=== PATIENT | female | born 1955 | race Caucasian/White ===

== ENCOUNTER → 2016-04-23 | Outpatient (REF) | payer OTHER ==
[2016-04-23 12:26] LABS: ALBUMIN/GLOBULIN RATIO 1.05 (1.00-1.93); ALKALINE PHOSPHATASE 74 U/L (45-117); ALT/SGPT 48 U/L (12-78); ANION GAP 7 MEQ/L (8-16); AST/SGOT 32 U/L (15-37); BILIRUBIN,TOTAL 0.5 MG/DL (0.2-1.0); BLOOD UREA NITROGEN 20 MG/DL (7-18); CALCIUM LEVEL 8.8 MG/DL (8.8-10.2); CARBON DIOXIDE LEVEL 31 MEQ/L (21-32); CHLORIDE LEVEL 107 MEQ/L (98-107); CHOLESTEROL LEVEL 159 MG/DL (<200); CREATININE FOR GFR 0.96 MG/DL (0.55-1.02); GLOMERULAR FILTRATION RATE > 60.0 (>45); GLUCOSE, FASTING 123 MG/DL (80-110); POTASSIUM SERUM 4.1 MEQ/L (3.5-5.1); SODIUM LEVEL 145 MEQ/L (136-145); TOTAL PROTEIN 7.8 GM/DL (6.4-8.2); TRIGLYCERIDES LEVEL 103 MG/DL (<150); URIC ACID 6.1 MG/DL (2.6-6.0)
== END ==
LOC: M SFHCCLAY 07:02
PROVIDERS: ATTEND Family Medicine
DX: I10 Essential (primary) hypertension (principal); E11.9 Type 2 diabetes mellitus without complications; E78.2 Mixed hyperlipidemia; M10.9 Gout, unspecified

== ENCOUNTER → 2016-06-14 | Outpatient (REF) | payer OTHER | LOC: M SFHCCLAY 12:03 | PROVIDERS: ATTEND Family Medicine | DX: N30.00 Acute cystitis without hematuria (principal) ==

== ENCOUNTER → 2016-07-23 | Outpatient (REF) | payer OTHER ==
[2016-07-23 19:20] LABS: BACTERIA, URINE NONE SEEN; HYALINE CAST, URINE NONE SEEN /lpf (0-1); MICROSCOPIC EXAM PERFORMED; RBC, URINE 0-1 /hpf (0-3); SQUAMOUS EPITHELIAL CELL URINE SMALL AMOUNT /hpf (SMALL AMT)
== END ==
LOC: M SMT 16:47
PROVIDERS: ATTEND Specialist
DX: R31.9 Hematuria, unspecified (principal)

== ENCOUNTER → 2016-10-14 | Outpatient (REF) | payer OTHER ==
[2016-10-14 14:07] LABS: ALBUMIN 3.9 GM/DL (3.2-5.2); ALBUMIN/GLOBULIN RATIO 1.11 (1.00-1.93); BILIRUBIN,TOTAL 0.3 MG/DL (0.2-1.0); CALCIUM LEVEL 9.2 MG/DL (8.8-10.2); CREATININE FOR GFR 1.15 MG/DL (0.55-1.02); GLOMERULAR FILTRATION RATE 50.9 (>45); POTASSIUM SERUM 4.2 MEQ/L (3.5-5.1); TOTAL PROTEIN 7.4 GM/DL (6.4-8.2); URIC ACID 8.4 MG/DL (2.6-6.0)
== END ==
LOC: M SFHCCLAY 07:11
PROVIDERS: ATTEND Family Medicine
DX: I10 Essential (primary) hypertension (principal); E11.9 Type 2 diabetes mellitus without complications; E78.2 Mixed hyperlipidemia; M10.9 Gout, unspecified

== ENCOUNTER → 2017-07-20 | Outpatient (CLI) | payer OTHER | LOC: M CLY 14:13 | DX: R06.00 Dyspnea, unspecified (principal) | CPT/HCPCS: 71046 ==

== ENCOUNTER → 2017-07-26 | Outpatient (CLI) | payer OTHER | LOC: M RAD 12:26 | DX: N60.32 Fibrosclerosis of left breast (principal) | CPT/HCPCS: 77066 ==

== ENCOUNTER → 2017-11-01 | Outpatient (CLI) | payer OTHER ==
[~2017-11-01] MED LIST: E-Z-GAS II EFFERVESCENT PACKET (SODIUM BICARB./CITRIC ACID/SIMETHICONE) As Ordered; E-Z-HD 98% w/w 340GM SUSP BTL As Ordered; E-Z-PAQUE 96% w/w SUSP 176GM BTL As Ordered
== END ==
LOC: M RAD 08:49
DX: K21.9 Gastro-esophageal reflux disease without esophagitis (principal)
CPT/HCPCS: 74220

== ENCOUNTER → 2018-02-24 | Outpatient (REF) | payer OTHER ==
[2018-02-24 16:53] LABS: BASO % 0.5 % (0.0-1.0); EOS # 0.2 10^3/uL (0.0-0.50); EOS % 2.1 % (0.0-3.0); HEMATOCRIT 45.7 % (36.0-47.0); HEMOGLOBIN 15.6 g/dl (12.0-15.5); IMMATURE GRANULOCYTE % 0.2 % (0-3.0); LYMPH # 1.9 10^3/uL (1.5-4.5); LYMPH % 22.6 % (24.0-44.0); MEAN CORPUSCULAR HEMOGLOBIN 29.8 pg (27.0-33.0); MEAN CORPUSCULAR HGB CONC 34.1 g/dl (32.0-36.5); MEAN CORPUSCULAR VOLUME 87.2 fl (80.0-96.0); MONO # 0.9 10^3/uL (0.0-0.8); MONO % 10.9 % (0.0-5.0); NEUTROPHILS # 5.2 10^3/uL (1.8-7.7); NEUTROPHILS % 63.7 % (36.0-66.0); PLATELET COUNT, AUTOMATED 251 10^3/uL (150-450); RED BLOOD COUNT 5.24 10^6/uL (4.00-5.40); RED CELL DISTRIBUTION WIDTH 11.9 % (11.5-14.5); WHITE BLOOD COUNT 8.2 10^3/uL (4.0-10.0)
[2018-02-24 17:26] LABS: ALBUMIN 3.9 GM/DL (3.2-5.2); ALBUMIN/GLOBULIN RATIO 1.03 (1.00-1.93); ALKALINE PHOSPHATASE 52 U/L (45-117); ALT/SGPT 44 U/L (12-78); ANION GAP 9 MEQ/L (8-16); AST/SGOT 27 U/L (7-37); BILIRUBIN,TOTAL 0.4 MG/DL (0.2-1.0); BLOOD UREA NITROGEN 20 MG/DL (7-18); CALCIUM LEVEL 8.6 MG/DL (8.8-10.2); CARBON DIOXIDE LEVEL 30 MEQ/L (21-32); CHLORIDE LEVEL 105 MEQ/L (98-107); CHOLESTEROL LEVEL 160 MG/DL (<200); CHOLESTEROL RISK RATIO 3.555 (<5); CREATININE FOR GFR 1.01 MG/DL (0.55-1.30); GLOMERULAR FILTRATION RATE 58.9 (>45); GLUCOSE, FASTING 96 MG/DL (70-100); HDL CHOLESTEROL 45 MG/DL (>40); LDL CHOLESTEROL 89 MG/DL (<100); NON-HDL-C 115 MG/DL; POTASSIUM SERUM 3.8 MEQ/L (3.5-5.1); SODIUM LEVEL 144 MEQ/L (136-145); TOTAL PROTEIN 7.7 GM/DL (6.4-8.2); TRIGLYCERIDES LEVEL 131 MG/DL (<150)
[2018-02-24 17:36] LABS: ESTIMATED AVERAGE GLUCOSE 128 MG/DL (60-110); HEMOGLOBIN A1c 6.1 %
== END ==
LOC: M SFHCCLAY 11:01
DX: I10 Essential (primary) hypertension (principal); E78.2 Mixed hyperlipidemia; E11.9 Type 2 diabetes mellitus without complications
CPT/HCPCS: 84443

== ENCOUNTER → 2018-08-29 | Outpatient (REF) | payer OTHER ==
[~2018-08-29] MED LIST changes: -E-Z-GAS II EFFERVESCENT PACKET (SODIUM BICARB./CITRIC ACID/SIMETHICONE) As Ordered; -E-Z-HD 98% w/w 340GM SUSP BTL As Ordered; -E-Z-PAQUE 96% w/w SUSP 176GM BTL As Ordered; +INDA125TA PO; +OMEP40CA2 PO
[2018-08-29 17:05] LABS: ALBUMIN 4.4 GM/DL (3.2-5.2); ALT/SGPT 54 U/L (12-78); BILIRUBIN,TOTAL 0.5 MG/DL (0.2-1.0); BLOOD UREA NITROGEN 17 MG/DL (7-18); C REACTIVE PROTEIN QUANTITATIV 0.72 MG/DL (0.00-0.30); CALCIUM LEVEL 9.5 MG/DL (8.8-10.2); CARBON DIOXIDE LEVEL 29 MEQ/L (21-32); CHLORIDE LEVEL 105 MEQ/L (98-107); CREATININE FOR GFR 1.14 MG/DL (0.55-1.30); GLOMERULAR FILTRATION RATE 51.1 (>45); GLUCOSE, FASTING 106 MG/DL (70-100); MAGNESIUM LEVEL 2.5 MG/DL (1.8-2.4); POTASSIUM SERUM 3.8 MEQ/L (3.5-5.1); RHEUMATOID FACTOR QUANT < 10.0 IU/ML (<15.0); SODIUM LEVEL 141 MEQ/L (136-145); URIC ACID 7.1 MG/DL (2.6-6.0)
[2018-08-29 17:22] LABS: BASO % 0.3 % (0.0-1.0); EOS # 0.1 10^3/uL (0.0-0.50); EOS % 0.9 % (0.0-3.0); HEMATOCRIT 47.9 % (36.0-47.0); LYMPH # 1.8 10^3/uL (1.5-4.5); LYMPH % 19.8 % (24.0-44.0); MEAN CORPUSCULAR HEMOGLOBIN 29.7 pg (27.0-33.0); MEAN CORPUSCULAR HGB CONC 33.4 g/dl (32.0-36.5); MONO # 0.7 10^3/uL (0.0-0.8); MONO % 7.9 % (0.0-5.0); NEUTROPHILS # 6.3 10^3/uL (1.8-7.7); NEUTROPHILS % 70.6 % (36.0-66.0); PLATELET COUNT, AUTOMATED 254 10^3/uL (150-450); RED BLOOD COUNT 5.38 10^6/uL (4.00-5.40); WHITE BLOOD COUNT 8.9 10^3/uL (4.0-10.0)
[2018-08-29 17:32] LABS: HEMOGLOBIN A1c 6.3 %
[2018-08-29 18:07] LABS: ERYTHROCYTE SEDIMENTATION RATE 5 mm/hr (0-30)
[2018-09-01 00:08] LABS: ANA (HEP2) Positive (.); CYCLIC CITRULLINATED PEPTIDE 22 units (0-19)
== END ==
LOC: M SFHCCLAY 11:25
PROVIDERS: ATTEND Family Medicine
DX: I10 Essential (primary) hypertension (principal); M25.50 Pain in unspecified joint; E11.9 Type 2 diabetes mellitus without complications; M10.9 Gout, unspecified

== ENCOUNTER → 2019-01-24 | Outpatient (CLI) | payer OTHER ==
[~2019-01-24] MED LIST changes: -OMEP40CA2 PO; +OMEP40CA97 PO
--- NOTE | 2019-01-25 09:18 | REP ---
Clinical: Osteoarthritis. Technique: AP and lateral views of the right and left hand. Findings: Both hands demonstrate moderate osteoarthritic degenerative changes to the first metacarpophalangeal and interphalangeal joints where subchondral sclerosis, joint space narrowing, and osteophytosis is appreciated (right greater than left). Remainder examination demonstrates mild bilateral arthritic changes to the interphalangeal joints with subchondral sclerosis and mild joint space narrowing. There is no evidence for acute fracture dislocation. Impression: Moderate arthritic changes involving the first digit (right greater than left) Mild arthritic changes involving the second through fifth interphalangeal joints. Electronically Signed by Ej Ramires MD 01/25/2019 09:09 A
--- NOTE | 2019-01-25 09:21 | REP ---
Clinical: Osteoarthritis. Technique: AP and lateral views of the right and left wrist. Findings: Generalized age-related changes to the carpal bones and wrist noted bilaterally. No acute fracture or dislocation. Impression: Bilateral generalized age-related changes. Electronically Signed by Ej Ramires MD 01/25/2019 09:13 A
== END ==
LOC: M RAD 10:32
PROVIDERS: ATTEND Internal Medicine Rheumatology
DX: M19.041 Primary osteoarthritis, right hand (principal); M19.042 Primary osteoarthritis, left hand; M19.031 Primary osteoarthritis, right wrist; M19.032 Primary osteoarthritis, left wrist

== ENCOUNTER → 2019-04-16 | Outpatient (CLI) | payer OTHER ==
--- NOTE | 2019-04-16 19:43 | REP ---
Lumbar spine five views: There are no comparisons. There is demineralization. There is degenerative disc disease at L4-5 and L5 S1. Vertebral body heights and alignment are, otherwise, unremarkable. There is facet osteoarthritis and L5 S1 bilaterally. The pedicles are unremarkable. The sacroiliac articulations are unremarkable. There is no spondylolysis or spondylolisthesis. Impression L4-5 and L5 S1 degenerative disc disease. Bilateral L5 S1 facet osteoarthritis. Electronically Signed by Edward Gupta MD 04/16/2019 07:34 P
--- NOTE | 2019-04-16 19:44 | REP ---
Cervical spine age views: Vertebral body heights, interspacing alignment are normal. The facets are normally aligned. Prevertebral soft tissues are normal. There is no listhesis on flexion or extension. The odontoid view is unremarkable. There is no bony foraminal encroachment. There is slight scoliosis convex left. This may represent muscular spasm. Impression: Essentially negative cervical spine except for slight scoliosis convex left, possibly from muscular spasm. Electronically Signed by Edward Gupta MD 04/16/2019 07:36 P
--- NOTE | 2019-04-16 19:45 | REP ---
Thoracic spine four views: There is mild scoliosis convex right, possibly positional. Vertebral body heights, interspacing alignment are otherwise unremarkable. The pedicles are unremarkable. There are no lytic, blastic or destructive changes. Impression: Mild scoliosis, otherwise negative thoracic spine. Electronically Signed by Edward Gupta MD 04/16/2019 07:37 P
== END ==
LOC: M CLY 14:30
PROVIDERS: ATTEND Family Medicine
DX: M46.96 Unspecified inflammatory spondylopathy, lumbar region (principal); M51.36 Other intervertebral disc degeneration, lumbar region; M51.37 Other intervertebral disc degeneration, lumbosacral region; M54.2 Cervicalgia

== ENCOUNTER → 2020-01-11 | Outpatient (REF) | payer MEDICARE, MEDICAID ==
[2020-01-11 12:36] LABS: BASO % 0.4 % (0.0-1.0); EOS # 0.3 10^3/uL (0.0-0.5); EOS % 3.7 % (0.0-3.0); HEMATOCRIT 49.4 % (36.0-47.0); HEMOGLOBIN 16.3 g/dl (12.0-15.5); LYMPH # 1.7 10^3/uL (1.5-5.0); LYMPH % 24.3 % (24.0-44.0); MEAN CORPUSCULAR HEMOGLOBIN 29.7 pg (27.0-33.0); MEAN CORPUSCULAR VOLUME 90.1 fl (80.0-96.0); MONO # 0.7 10^3/uL (0.0-0.8); MONO % 9.6 % (0.0-5.0); NEUTROPHILS # 4.4 10^3/uL (1.5-8.5); NEUTROPHILS % 61.9 % (36.0-66.0); PLATELET COUNT, AUTOMATED 224 10^3/uL (150-450); RED BLOOD COUNT 5.48 10^6/uL (4.00-5.40); WHITE BLOOD COUNT 7.1 10^3/uL (4.0-10.0)
[2020-01-11 13:18] LABS: ALBUMIN 4.2 GM/DL (3.2-5.2); BILIRUBIN,TOTAL 0.5 MG/DL (0.2-1.0); CALCIUM LEVEL 9.5 MG/DL (8.8-10.2); CHOLESTEROL RISK RATIO 3.562 (<5); CREATININE FOR GFR 1.03 MG/DL (0.55-1.30); GLOMERULAR FILTRATION RATE 57.3 (>45); TOTAL PROTEIN 7.7 GM/DL (6.4-8.2)
[2020-01-11 13:55] LABS: HEMOGLOBIN A1c 6.2 %
== END ==
LOC: M SFHCCLAY 09:22
PROVIDERS: ATTEND Family Medicine
DX: I10 Essential (primary) hypertension (principal); E11.9 Type 2 diabetes mellitus without complications

== ENCOUNTER 2020-07-28 09:54 | Emergency (ER) | payer MEDICARE, MEDICAID ==
[~2020-07-28] VITALS: Ht 157.5 cm; Wt 79.3 kg
[2020-07-28] MEDS ORDERED: NS 1,000 ML IV ONE (12:20)
[2020-07-28] MEDS ORDERED: PANTOPRAZOLE 40MG VIAL (C9113 PER 1) IV ONE (12:20)
[2020-07-28] MEDS ORDERED: KETOROLAC 30 MG/ML 1ML VIAL IV ONE (12:20)
[2020-07-28] MEDS ORDERED: ONDANSETRON 4MG/2ML VIAL IV ONE (12:20)
[2020-07-28 13:14] LABS: BASO % 0.5 % (0.0-1.0); EOS # 0.1 10^3/uL (0.0-0.5); EOS % 0.8 % (0.0-3.0); HEMATOCRIT 49.5 % (36.0-47.0); HEMOGLOBIN 16.6 g/dl (12.0-15.5); LYMPH # 1.8 10^3/uL (1.5-5.0); LYMPH % 28.1 % (24.0-44.0); MEAN CORPUSCULAR HEMOGLOBIN 29.4 pg (27.0-33.0); MEAN CORPUSCULAR HGB CONC 33.5 g/dl (32.0-36.5); MEAN CORPUSCULAR VOLUME 87.8 fl (80.0-96.0); MONO # 0.6 10^3/uL (0.0-0.8); MONO % 8.4 % (2.0-8.0); NEUTROPHILS # 4.1 10^3/uL (1.5-8.5); PLATELET COUNT, AUTOMATED 245 10^3/uL (150-450); RED BLOOD COUNT 5.64 10^6/uL (4.00-5.40); WHITE BLOOD COUNT 6.6 10^3/uL (4.0-10.0)
[2020-07-28 13:49] LABS: ALBUMIN 4.2 GM/DL (3.2-5.2); ALT/SGPT 97 U/L (12-78); BILIRUBIN,DIRECT 0.2 MG/DL (0.0-0.2); BILIRUBIN,TOTAL 0.4 MG/DL (0.2-1.0); BLOOD UREA NITROGEN 19 MG/DL (7-18); CALCIUM LEVEL 9.7 MG/DL (8.8-10.2); CARBON DIOXIDE LEVEL 28 MEQ/L (21-32); CHLORIDE LEVEL 107 MEQ/L (98-107); CK-MB VALUE MASS 1.4 NG/ML (<3.6); CPK CREATINE PHOSPHOKINASE 160 U/L (26-192); CREATININE FOR GFR 0.91 MG/DL (0.55-1.30); GLOMERULAR FILTRATION RATE > 60.0 (>45); GLUCOSE, FASTING 121 MG/DL (70-100); LIPASE 189 U/L (73-393); MB/CK RELATIVE INDEX 0.88 (< OR =4); POTASSIUM SERUM 3.8 MEQ/L (3.5-5.1); SODIUM LEVEL 141 MEQ/L (136-145); TOTAL PROTEIN 7.9 GM/DL (6.4-8.2); TROPONIN I < 0.02 NG/ML (< 0.10)
[2020-07-28] MEDS ORDERED: ISOVUE-370 76% 100ML VIAL As Ordered ONE (14:16)
--- NOTE | 2020-07-28 15:38 | REP ---
INDICATION: upper abd pain. COMPARISON: None TECHNIQUE: Axial contrast-enhanced images from the lung bases to the pubic symphysis using 100 cc Isovue 370 intravenous contrast material. . This CT examination was performed using the following dose reduction techniques: Automated exposure control, adjustment of mA and/or kv according to the patient's size, and the use of iterative reconstruction technique. FINDINGS: Lung bases are clear. Liver demonstrates diffuse fatty infiltration without focal hepatic lesion identified. Spleen, pancreas, bilateral adrenal glands and kidneys are normal. Gallbladder demonstrates mildly prominent enhancement along with multiple gallstones raising the possibility of early acute cholecystitis. The enteric system including stomach, small, and large bowel appears normal. No evidence for obstruction or acute inflammatory process. Few scattered diverticula noted without acute diverticulitis. Pelvis demonstrates normal bladder and age-appropriate uterus/adnexa. No ascites. No free air. No intraperitoneal or retroperitoneal adenopathy. Abdominal aorta and vasculature appear normal. Musculoskeletal structures are intact and without acute osseous abnormality. IMPRESSION: Cannot exclude very early subtle acute cholecystitis. <Electronically signed by Ej Ramires > 07/28/20 1590
[2020-07-28] MEDS ORDERED: metroNIDAZOLE 500 MG in IV 1 EA IV ONE (15:50)
[2020-07-28] MEDS ORDERED: CIPROFLOXACIN 400 MG in IV 1 EA IV ONE (15:50)
--- NOTE | 2020-07-28 16:15 | REP ---
INDICATION: cholecystitis ? CBD size. COMPARISON: CT abdomen and pelvis today. TECHNIQUE: Real-time sonographic evaluation of right upper quadrant performed. FINDINGS: There are gallstones in the gallbladder measuring up to 1 cm in diameter. There is no gallbladder wall thickening or pericholecystic fluid.. There is no intrahepatic or extrahepatic biliary dilatation, common bile duct measures 4 mm in maximum diameter. Liver demonstrates somewhat increased echotexture diffusely compatible with fatty infiltration. No liver mass is seen. The pancreas demonstrates homogeneous echotexture with no gross mass. The right kidney demonstrates no hydronephrosis, with a normal size of 10.3 cm in length. No free fluid is seen. IMPRESSION: Multiple gallstones in the gallbladder with no gallbladder wall thickening, pericholecystic fluid or biliary dilatation. Diffuse fatty infiltration of the liver. <Electronically signed by Edward Silver > 07/28/20 4712
[2020-07-28] MEDS ORDERED: KETO10TAB PO (17:35)
[2020-07-28] MEDS ORDERED: ZOFR4TAB16 PO (17:35)
[2020-07-28] MEDS ORDERED: OMEP40CA97 PO (17:44)
[2020-07-28 18:05] VITALS: BP 157/86
--- NOTE | 2020-07-28 20:11 | ECGEPIP ---
[facility] - ED Test Date: 2020-07-28 Pat Name: EDILBERTO SNOW Department: Room: - Gender: Female Wound Care Specialist: WENDY : 1955 Requested By: VICKIE GUZMÁN PA-C Order Number: [id number] Reading MD: Bharati Sherman Measurements Intervals [place] Rate: 67 P: 15 [place]: 172 QRS: 21 QRSD: 92 T: 35 QT: 410 QTc: 433 Interpretive Statements Normal sinus rhythm NSTTW abnormalities delayed r progression No prior Electronically Signed on 07-28-2020 20:10:46 EDT by Bharati Sherman
== END 2020-07-28 18:08 | disposition home or self-care (01) ==
LOC: M ED 09:54
DX: K80.70 Calculus of gallbladder and bile duct without cholecystitis without obstruction (principal); K76.0 Fatty (change of) liver, not elsewhere classified; E11.9 Type 2 diabetes mellitus without complications; I10 Essential (primary) hypertension; G47.33 Obstructive sleep apnea (adult) (pediatric); Z79.899 Other long term (current) drug therapy; Z88.0 Allergy status to penicillin; Z88.2 Allergy status to sulfonamides; Z88.8 Allergy status to other drugs, medicaments and biological substances
CPT/HCPCS: 74177; 76705; 80048; 80076; 81001; 82550; 82553; 83690; 84484; 85025; 87086; 93005; 96361; 96374; 96375; 99284; C9113; J1885; J2405; Q9967

== ENCOUNTER → 2021-01-09 | Outpatient (REF) | payer MEDICARE, MEDICAID ==
[~2021-01-09] MED LIST changes: +AMLO2.5T3; +FIDA200TA PO; +KETO10TAB PO; +OMEP40CA4 PO; -OMEP40CA97 PO; +ONDA4TAB6 PO; +ZOFR4TAB16 PO
[2021-01-09 16:06] LABS: BASO % 0.4 % (0.0-1.0); EOS # 0.1 10^3/uL (0.0-0.5); EOS % 1.2 % (0.0-3.0); HEMATOCRIT 50.3 % (36.0-47.0); HEMOGLOBIN 16.6 g/dl (12.0-15.5); LYMPH % 26.2 % (24.0-44.0); MEAN CORPUSCULAR HEMOGLOBIN 29.4 pg (27.0-33.0); MONO # 0.6 10^3/uL (0.0-0.8); MONO % 7.8 % (2.0-8.0); NEUTROPHILS # 4.8 10^3/uL (1.5-8.5); PLATELET COUNT, AUTOMATED 232 10^3/uL (150-450); RED BLOOD COUNT 5.65 10^6/uL (4.00-5.40); WHITE BLOOD COUNT 7.5 10^3/uL (4.0-10.0)
[2021-01-09 16:22] LABS: HEMOGLOBIN A1c 5.7 %
[2021-01-09 16:37] LABS: ALBUMIN 4.4 GM/DL (3.2-5.2); ALT/SGPT 86 U/L (12-78); BILIRUBIN,TOTAL 0.5 MG/DL (0.2-1.0); BLOOD UREA NITROGEN 20 MG/DL (7-18); C REACTIVE PROTEIN QUANTITATIV 0.43 MG/DL (0.00-0.30); CALCIUM LEVEL 9.9 MG/DL (8.8-10.2); CARBON DIOXIDE LEVEL 31 MEQ/L (21-32); CHLORIDE LEVEL 105 MEQ/L (98-107); CHOLESTEROL LEVEL 187 MG/DL (<200); CHOLESTEROL RISK RATIO 3.528 (<5); CREATININE FOR GFR 1.02 MG/DL (0.55-1.30); GLOMERULAR FILTRATION RATE 57.7 (>45); GLUCOSE, FASTING 119 MG/DL (70-100); HDL CHOLESTEROL 53 MG/DL (>40); LDL CHOLESTEROL 113 MG/DL (<100); MAGNESIUM LEVEL 2.3 MG/DL (1.8-2.4); NON-HDL-C 134 MG/DL; RHEUMATOID FACTOR QUANT < 10.0 IU/ML (<15.0); SODIUM LEVEL 141 MEQ/L (136-145); TOTAL PROTEIN 7.9 GM/DL (6.4-8.2); TRIGLYCERIDES LEVEL 107 MG/DL (<150)
[2021-01-09 16:42] LABS: ERYTHROCYTE SEDIMENTATION RATE 9 mm/hr (0-30)
[2021-01-13 00:07] LABS: ANA (HEP2) Positive (.); CYCLIC CITRULLINATED PEPTIDE 20 units (0-19); VITAMIN D 1,25 DIHYDROXY 73.5 pg/mL (19.9-79.3)
== END ==
LOC: M SFHCCLAY 11:23
PROVIDERS: ATTEND Family Medicine
DX: M79.645 Pain in left finger(s) (principal); M25.50 Pain in unspecified joint; K21.9 Gastro-esophageal reflux disease without esophagitis; E55.9 Vitamin D deficiency, unspecified; E78.2 Mixed hyperlipidemia; E11.9 Type 2 diabetes mellitus without complications; I10 Essential (primary) hypertension

== ENCOUNTER → 2021-01-09 | Outpatient (CLI) | payer MEDICARE, MEDICAID ==
--- NOTE | 2021-01-09 12:54 | REP ---
INDICATION: PAIN OF LEFT THUMB. COMPARISON: None. TECHNIQUE: Four views FINDINGS: There is moderate asymmetric intra digital joint space narrowing. There is osteophytosis of the interphalangeal joint of the 1st digit. There is no evidence of periarticular osteopenia or marginal erosions. There is no evidence of an acute fracture, dislocation, or subluxation. Degenerative changes are seen involving the wrist particularly the 1st carpometacarpal joint. IMPRESSION: Chronic changes as described above. <Electronically signed by Navjot Welsh > 01/09/21 0515
== END ==
LOC: M CLY 11:28
PROVIDERS: ATTEND Family Medicine
DX: M19.042 Primary osteoarthritis, left hand (principal); M79.645 Pain in left finger(s); M25.50 Pain in unspecified joint; K21.9 Gastro-esophageal reflux disease without esophagitis; E55.9 Vitamin D deficiency, unspecified; E78.2 Mixed hyperlipidemia; E11.9 Type 2 diabetes mellitus without complications; I10 Essential (primary) hypertension
CPT/HCPCS: 73130; 80053; 80061; 82652; 83036; 83735; 85025; 85652; 86038; 86140; 86200; 86431; G0463

== ENCOUNTER 2021-02-09 13:51 | Emergency (ER) | payer MEDICARE, MEDICAID ==
[~2021-02-09] VITALS: Ht 154.9 cm; Wt 77.3 kg
[~2021-02-09 13:51] MED LIST changes: -AMLO2.5T3; -FIDA200TA PO; -ONDA4TAB6 PO
--- OUTSIDE RECORDS SUMMARY | 2021-02-09 13:59 | CCD ---
Author Author [facility] Organization [facility] Address Unknown Phone Unavailable Care Team Providers Care Live Games Dealer Name Role Phone Naveen Gee Unavailable PROBLEMS Type Condition ICD9-CM Code CTK40-HH Code Onset Dates Condition S tatus W/U Status Risk SNOMED Code Notes Problem Obstructive sleep apnea G47.33 Active confirmed 32286547 Problem Mixed hyperlipidemia E78.2 Active confirmed 406896319 Problem Non morbid obesity due to excess calories E66.09 Active confirmed 074808000 Problem Essential hypertension I10 Active confirmed 92955894 Problem Hordeolum externum of right lower eyelid H00.012 Active confirmed 7608099 Problem Controlled diabetes mellitus type II without complication E11.9 Active confirmed 685853606 Problem LVH (left ventricular hypertrophy) I51.7 Activ e confirmed 92702507 Problem Gout involving toe, unspecif ied cause, unspecified chronicity, unspecified laterality M10.9 Active confirmed 5413993 04 Problem History of skin cancer Z85.828 Active confirmed 192130585 Problem Post-herpetic trigeminal neuralgia B02.22 Activ e confirmed 26670593 Problem Post herpetic neuralgia B02.29 Active confirmed 0947733 Problem Vitamin D deficiency E55.9 Active confirmed 19052894 Problem History of melanoma Z85.820 Active confirmed 686935015 Problem Calculus of gallbladder without cholecystitis wi thout obstruction K80.20 Active confirmed 64554687 Problem Aortic valve sclerosis I35.8 Active confirmed 36220041 Problem Other chronic pain G89.29 Active confirmed 8 6511478 Problem Primary osteoarthritis, left hand M19.042 Active confirmed 029409837813462 Problem Primary osteoarthritis, right hand M19.041 Activ e confirmed 889437776307179 Problem GERD without esophagitis K21.9 Active confirmed 509381610 ALLERGIES Allergen (clinical drug ingredient) Drug/Non Drug Allergy do cumented on EMR Reaction Allergy Type Onset Date Status spironolactone Spironolactone([facility] Code:[address]-19) intolerance Drug Allergy Active benazepril / hydrochlorothiazide Benazepril-Hydrochlor othiazide([facility] Code:[address]-00) intolerances Drug Allergy Active amoxicillin / clavulanate Augmentin(ND Code:[address]-85) Swel ling Drug Allergy Active sulfamethoxazole / trimethoprim Bactrim([facility] Code:[address]- 01) rash, skin tight, leg pain Drug Allergy Active Penicillin G Benzathine Swelling Drug Allergy Active indapamide Indapamide([facility] Code:[address]-39) ineffective Drug Allerg y Active olmesartan Olmesartan Medoxomil([facility] Code:[address]-60) Ski n lesions/rash Drug Allergy Active chlorthalidone Chlorthalidone([facility] Code:[address]-49) intolerance Drug Allergy Active valacyclovir Valacyclovir HCl([facility] Code:[address]-66) ineffective Drug Allergy Active ENCOUNTERS from 1955 to 2021-01-12 Encounter Location Date Provider Diagnosis [facility] [place] [facility] [phone] [place] [address] Dec, Naveen Marlen Essential hypertension I10 ; Controlled diabetes mellitus type II without complication E11.9 ; Skin lesion of scalp L98.9 ; Acute bacterial conjunctivitis of both eyes H10.33 ; Rash R21 ; Obstructive sleep apnea G47.33 ; Mixed hyperlipidemia E78.2 ; GERD without esophagitis K21.9 ; Pain of left thumb M79.645 ; Arthralgia, unspecified joint M25.50 ; Vitamin D deficiency E55.9 and Medication refill Z76.0 IMMUNIZATIONS Vaccine Route Administration Date Status COVID-19 dose #2 given elsewhere Unspecified Unknown May Administered COVID-19 dose #1 given elsewhere Unspecified Unknown May 12, 2020 Administered Zoster 50mcg/0.5mL Shingrix IM Intramuscular Feb 24, 2018 Adm inistered Zoster 50mcg/0.5mL Shingrix IM Intramuscular July 20, 2017 Adm inistered Influenza 6mo & up Fluzone Unknown June 14, 2016 Refus ed Influenza 6mo & up Fluzone Unknown Apr 28, 2016 Refus ed Influenza 6mo & up Fluzone IM Dec 29, 2010 Admin istered Influenza 6mo & up Fluzone IM Feb 03, 2010 Admin istered SOCIAL HISTORY Tobacco Use: Social History Observation Description Date Details (start date - stop date) Never Smoker Sex Assigned At : Social History Observation Description Sex Assigned At Unknown Education: Question Answer Notes Level of Education: Finished High School Audit Question Answer Notes Total Score: 1 Interpretation: Alcohol Education Language: Question Answer Notes Languages spoken: [place] Roman Catholic: Question Answer Notes Roman Catholic No yazdanism beliefs that would impact healthcare Domestic Violence: Question Answer Notes Status: Sexual Hx: Question Answer Notes Had sex in the last 12 months (vaginal, oral, or anal)? No Have you ever had an STD? No Drug and Alcohol Question Answer Notes Total Score: 0 Interpretation: No problems reported Alcohol Screening: Question Answer Notes Did you have a drink containing alcohol in the past year? Ye s Points 1 Interpretation Negative How often did you have six or more drinks on one occas ion in the past year? Never (0 points) How many drinks did you have on a typica l day when you were drinking in the past year? 1 or 2 (0 points) How often did you have a drink containing alcohol in t he past year? 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, increasin g in size Diagnosis 1 Skin lesion of scalp (L98.9) Referral Organization [facility] Referring Provider First Name Naveen Referring Provider Last Name Marlen Referring Provider Specialty Family Medicine Referred Provider [facility] Referred Provider Specialty Dermatology Referral Priority Urgent General Notes Blessing Olmedo 01/09/2021 11:0 7:59 AM > Bev Hubbard 01/12/2021 2:25:29 PM > per office ref rec'd,not sched yet VITAL SIGNS Weight 168 lbs Dec, Weight-kg 76.2 kg Dec, Height 61.5 in Dec, BMI 31.23 kg/m2 Dec, Heart Rate 71 /min Dec, Respiratory Rate 16 /min Dec, Temperature 97.6 degrees Fahrenheit Dec, Oximetry 98ra Dec, Blood pressure systolic 196 mm Hg Dec, Blood pressure diastolic 126 mm Hg Dec, MEDICATIONS Medication SIG (Take, Route, Frequency, Duration) Notes Start Da te End Date Status One touch ultra test strips 1 strip intradermally Daily for 90 days Active Aleve 220 MG 2 capsules Orally every 12 hrs as needed Active Vitamin D3 10 MCG (400 UNIT) 1 capsule Orally Once a day for 90 day(s ) Active Amlodipine Besylate 2.5 MG 1 tablet Orally Once a day for 30 day (s) Dec, Active Clotrimazole-Betamethasone 1-0.05 % 1 application Exte rnally Twice a day for 30 Days Dec, Active CPAP Machine Pressure-4 cm water Dx G47.33 Active CPAP mask and all related supplies Daily Dx G47.33 Active [employer] Lancet Thin 23G - as directed intradermally Daily for 30 Active valACYclovir HCl 500 MG 1 tablet Orally twice daily for 10 d ay(s) Cipla station operator Active [employer] Lancet Thin 23G - as directed intradermally Daily for 90 day( s) Active Ocuvite-Lutein - 1 cap Orally Daily Active Tobramycin 0.3 % 1 drop into affected eye Ophthalmic every 4 hrs for 7 day(s) Dec, Active Acyclovir 5 % 1 application to affected ar ea Externally Six times a day for 10 day(s) Oct, Active Omeprazole 20 MG 1 capsule 30 minutes before morning meal Orally Once a day for 90 day(s) Active PROCEDURES No Information RESULTS Component Value Reference Range CBC with Differential Reviewed date:01/09/2021 16:53:18 Interpretation: Performing Lab:[facility], [facility] [id number] , ,[place] [address] WHITE BLOOD COUNT 7.5 4.0-10.0 RED BLOOD COUNT 5.65 4.00-5.40 HEMOGLOBIN 16.6 12.0-15.5 HEMATOCRIT 50.3 36.0-47.0 MEAN CORPUSCULAR VOLUME 89.0 80.0-96.0 MEAN CORPUSCULAR HEMOGLOBIN 29.4 27.0-33.0 MEAN CORPUSCULAR HGB CONC 33.0 32.0-36.5 RED CELL DISTRIBUTION WIDTH 12.7 11.5-14.5 PLATELET COUNT, AUTOMATED 232 150-450 NEUTROPHILS % 64.0 36.0-66.0 LYMPH % 26.2 24.0-44.0 MONO % 7.8 2.0-8.0 EOS % 1.2 0.0-3.0 BASO % 0.4 0.0-1.0 NEUTROPHILS # 4.8 1.5-8.5 LYMPH # 2.0 1.5-5.0 MONO # 0.6 0.0-0.8 EOS # 0.1 0.0-0.5 BASO # 0.0 0.0-0.2 Comprehensive Metabolic Profile (CMP) Reviewed date:01/09/2021 16:52:37 Interpretation: Performing Lab[facility] [address] [address] , ,[place] [address] GLUCOSE, FASTING 119 70-100 BLOOD UREA NITROGEN 20 7-18 CREATININE FOR GFR 1.02 0.55-1.30 GLOMERULAR FILTRATION RATE 57.7 >45 SODIUM LEVEL 141 136-145 POTASSIUM SERUM 4.0 3.5-5.1 CHLORIDE LEVEL 105 98-107 CARBON DIOXIDE LEVEL 31 21-32 CALCIUM LEVEL 9.9 8.8-10.2 AST/SGOT 65 7-37 ALT/SGPT 86 12-78 ALKALINE PHOSPHATASE 84 45-117 BILIRUBIN,TOTAL 0.5 0.2-1.0 TOTAL PROTEIN 7.9 6.4-8.2 ALBUMIN 4.4 3.2-5.2 ALBUMIN/GLOBULIN RATIO 1.3 1.2-2.2 C REACTIVE PROTEIN QUANTITATIV (At [facility] L [facility]) Reviewed date:01/09/2021 16:52:29 Interpretation: Performing Lab[facility] [address] [address] , ,[place] [address] C REACTIVE PROTEIN QUANTITATIV 0.43 0.00-0.30 ERYTHROCYTE SEDIMENTATION RATE Reviewed date:01/09/2021 16:52:47 Interpretation: Performing Lab:[facility] [address] [address] , ,[place] [address] ERYTHROCYTE SEDIMENTATION RATE 9 0-30 HEMOGLOBIN A1c Reviewed date:01/09/2021 16:52:56 Interpretation: Performing Lab:[facility] [address] [address] , ,[place] [address] HEMOGLOBIN A1c 5.7 ESTIMATED AVERAGE GLUCOSE 117 60-110 LIPID PANEL (CARDIAC RISK) Reviewed date:01/09/2021 16:53:07 Interpretation: Performing Lab:[facility] [address] [address] , ,[facility] TRIGLYCERIDES LEVEL 107 <150 CHOLESTEROL LEVEL 187 <200 HDL CHOLESTEROL 53 >40 LDL CHOLESTEROL 113 <100 NON-HDL-C 134 CHOLESTEROL RISK RATIO 3.528 <5 MAGNESIUM LEVEL Reviewed date:01/09/2021 16:53:32 Interpretation: Performing Lab[facility] [address] [address] , ,[place] [address] MAGNESIUM LEVEL 2.3 1.8-2.4 REASON FOR VISIT Patient finally seeing dentist, she states she is a bit down as she has had a bi t of dental work and more to follow. She states her BP has been high, Refill vit bernal D, omeprazole, acyclovir MEDICAL (GENERAL) HISTORY Type Description Date Medical History Hypertension Medical History Aortic valve sclerosis Medical History DM- diet controlled Medical History Arthritis Medical History Hx of melanoma- right voodoo Medical History LAITH on CPAP Surgical History [place]ion wrist carpal tunnel 2004 Surgical History Rt knee arthroscopic 1990 Surgical History Melanoma removal forehead- [place]- Dr. Luz Morrell 09/04/2013 Hospitalization History Carpal tunnel surgery 2004 Hospitalization History Right knee surgery 1990 Hospitalization History ER-infection right eye 07/2015 Goals Section No Information Health Concerns No Information MEDICAL EQUIPMENT No Information MENTAL STATUS No Information FUNCTIONAL STATUS No Information ASSESSMENTS Encounter Date Diagnosis Assessment Notes Treatment Notes Treatm ent Clinical Notes Dec, Essential hypertension (ICD-10 - I10) Will trial low dose amlodipine. She has not been tolerant of other meds so will start quite slow. Pt will monitor at home and recheck here in 3 months. Pt agreeable. Dec, Controlled diabetes mellitus type II without complication (ICD-10 - E11.9) Will update labs today and f/u pending results. Dec, Skin lesion of scalp (ICD-10 - L98.9) She needs to see derm for possible SCC on scalp, will do urgent referral. Dec, Acute bacterial conjunctivitis of both eyes (ICD -10 - H10.33) Will start drops and consider referral to ophthamology if persists or worsens. Dec, Rash (ICD-10 - R21) Will treat with combo cream. She does not have any currently but may be either fungal or dermatitis. Dec, Obstructive sleep apnea (ICD-10 - G47.33) Cont CPAP daily- still beneficial and using routinely. Dec, Mixed hyperlipidemia (ICD-10 - E78.2) Due for updated labs. Dec, GERD without esophagitis (ICD-10 - K21.9) Stable. Dec, Pain of left thumb (ICD-10 - M79.645) Xray in 2019 confirmed OA, will update imaging and rheumatoid workup. She has previous +HOWIE and CCP so may reconsider rheumatology consultation. Dec, Arthralgia, unspecified joint (ICD-10 - M25.50) Will update labs. Prev dx with OA. Dec, Vitamin D deficiency (ICD-10 - E55.9) Due for labs. Dec, Medication refill (ICD-10 - Z76.0) PLAN OF TREATMENT Medication Medication Name Sig Start Date Stop Date Clotrimazole-Betamethasone 1-0.05 % 1 application Exte rnally Twice a day for 30 Days Dec, Tobramycin 0.3 % 1 drop into affected eye Ophthalmic ever y 4 hrs for 7 day(s) Dec, Amlodipine Besylate 2.5 MG 1 tablet Orally Once a day for 30 day(s) Dec, Vitamin D3 10 MCG (400 UNIT) 1 capsule Orally Once a day for 90 day(s) Omeprazole 20 MG 1 capsule 30 minutes before morning meal Orally Once a day for 90 day(s) valACYclovir HCl 500 MG 1 tablet Orally twice daily for 10 day(s ) Treatment Notes Assessment Notes Clinical Notes Essential hypertension Will trial low do se amlodipine. She has not been tolerant of other meds so will start quite slow. Pt will monitor at home and recheck here in 3 months. Pt agreeable. Controlled diabetes mellitus type II without complication Will update labs today and f/u pending results. Skin lesion of scalp She needs to see de for possible SCC on scalp, will do urgent referral. Acute bacterial conjunctivitis of both eyes Will start drops and consider referral to ophthamology if persists or worsens. Rash Will treat with comb o cream. She does not have any currently but may be either fungal or dermatitis. Obstructive sleep apnea Cont CPAP daily- still beneficial and using routinely. Mixed hyperlipidemia Due for updated lab s. GERD without esophagitis Stable. Pain of left thumb Xray in 2018 confirm ed OA, will update imaging and rheumatoid workup. She has previous +HOWIE and CCP so may reconsider rheumatology consultation. Arthralgia, unspecified joint Will updat e labs. Prev dx with OA. Vitamin D deficiency Due for labs. 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, ghazalaasin g in size, [facility] Nurse Next Appt Details 3 Months Reason:30 minutes Provider Name:Naveen Gee, 02:00:00 PM, [address], , [place], [id number], Follow Up:3 Kuorlj22 minutes Insurance Providers Payer Name Payer Address Payer Phone Insured Name Patient Relati onship to Insured Coverage Start Date Coverage End Date MEDICA[employer] [address] [facility] [id number] [phone] EDILBERTO SNOW self MEDICARE Part A and B [address] [facility] [id number] [phone] EDILBERTO SNOW self
--- OUTSIDE RECORDS SUMMARY | 2021-02-09 14:00 | CCD ---
Author Author [facility] Organization [facility] Address Unknown Phone Unavailable Care Team Providers Care Insulator Cutter And Former Name Role Phone Jessy Dee JR, MD Unavailable Unavailable Jessy Dee JR, MD Unavailable Unavailable Jessy Dee JR, MD Unavailable Unavailable Jessy Dee JR, MD Unavailable Unavailable Jessy Dee JR, MD Unavailable Unavailable Jessy Dee JR, MD Unavailable Unavailable Jessy Dee JR, MD Unavailable Unavailable Jessy Dee JR, MD Unavailable Unavailable Jessy Dee JR, MD Unavailable Unavailable Jessy Dee JR, MD Unavailable Unavailable Jessy Dee JR, MD Unavailable Unavailable Jessy Dee JR, MD Unavailable Unavailable Jessy Dee JR, MD Unavailable Unavailable Jessy Dee JR, MD Unavailable Unavailable Jessy Dee JR, MD Unavailable Unavailable Jessy Dee JR, MD Unavailable Unavailable Jessy Dee JR, MD Unavailable Unavailable Jessy Dee JR, MD Unavailable Unavailable Jessy Dee JR, MD Unavailable Unavailable Jessy Dee JR, MD Unavailable Unavailable Jessy Dee JR, MD Unavailable Unavailable Jessy Dee JR, MD Unavailable Unavailable Jessy Dee JR, MD Unavailable Unavailable Jessy Dee JR, MD Unavailable Unavailable Jessy Dee JR, MD Unavailable Unavailable Jessy Dee JR, MD Unavailable Unavailable Jessy Dee JR, MD Unavailable Unavailable Leila JR, J Rc MD Unavailable Unavailable Leila JR, J Rc MD Unavailable Unavailable Leila JR, J Rc MD Unavailable Unavailable Leila JR, J Rc MD Unavailable Unavailable Leila JR, J Rc MD Unavailable Unavailable Leila JR, J Rc MD Unavailable Unavailable Leila JR, J Rc MD Unavailable Unavailable Leila JR, J Rc MD Unavailable Unavailable Leila JR, J Rc MD Unavailable Unavailable Leila JR, J Rc MD Unavailable Unavailable Leila JR, J Rc MD Unavailable Unavailable Leila JR, J Rc MD Unavailable Unavailable Leila JR, J Rc MD Unavailable Unavailable Leila JR, J Rc MD Unavailable Unavailable Leila JR, J Rc MD Unavailable Unavailable Leila JR, J Rc MD Unavailable Unavailable Leila JR, J Rc MD Unavailable Unavailable Leila JR, J Rc MD Unavailable Unavailable Leila JR, J Rc MD Unavailable Unavailable Leila JR, J Rc MD Unavailable Unavailable Leila JR, J Rc MD Unavailable Unavailable Leila JR, J Rc MD Unavailable Unavailable Leila JR, J Rc MD Unavailable Unavailable Leila JR, J Rc MD Unavailable Unavailable Leila JR, J Rc MD Unavailable Unavailable Leila JR, J Rc MD Unavailable Unavailable Leila JR, J Rc MD Unavailable Unavailable Leila JR, J Rc MD Unavailable Unavailable Re-disclosure Warning The records that you are about to access may contain information from federally-assisted alcohol or drug abuse programs. If such information is present, then the following federally mandated warning applies: This information has been disclosed to you from records protected by federal confidentiality rules (42 CFR part 2). The federal rules prohibit you from making any further disclosure of this information unless further disclosure is expressly permitted by the written consent of the person to whom it pertains or as otherwise permitted by 42 CFR part 2. A general authorization for the release of medical or other information is NOT sufficient for this purpose. The Federal rules restrict any use of the information to criminally investigate or prosecute any alcohol or drug abuse patient.The records that you are about to access may contain highly sensitive health information, the redisclosure of which is protected by Article 27-F of the [facility] Public Health law. If you continue you may have access to information: Regarding HIV / AIDS; Provided by facilities licensed or operated by the [facility] Office of Mental Health; or Provided by the [facility] Office for People With Developmental Disabilities. If such information is present, then the following [facility] mandated warning applies: This information has been disclosed to you from confidential records which are protected by state law. State law prohibits you from making any further disclosure of this information without the specific written consent of the person to whom it pertains, or as otherwise permitted by law. Any unauthorized further disclosure in violation of state law may result in a fine or long term sentence or both. A general authorization for the release of medical or other information is NOT sufficient authorization for further disc losure. Family History Family Member Name Family Member Gender Family Member Status Date o f Status Description Data Source(s) Unknown Unknown Problem MEDENT ([facility]) PGM Unknown Unknown Problem [facility] ([facility]) Unknown Unknown Problem MEDENT ([facility]) Encounters Encounter Providers Location Date Indications Data Source(s ) Outpatient [address] [facility] [place] [address] 01/09/2021 12:00:00 AM EDT eCW1 ([facility]) Unknown [address] [facility] [place] [address] 08/25/2020 12:00:00 AM EDT eCW1 ([facility]) Outpatient Attender: Rc Sy/Lizzie/Boogie/Ronald mcnair 08/13/2020 02:30:00 PM EDT MEDENT ([facility]) Unknown [address] [facility] [place] [address] 08/13/2020 12:00:00 AM EDT eCW1 ([facility]) Unknown [address] [facility] [place] [address] 08/13/2020 12:00:00 AM EDT eCW1 ([facility]) Unknown [address] [facility] [place] [address] 08/13/2020 12:00:00 AM EDT eCW1 ([facility]) Unknown [address] [facility] [place] [address] 07/28/2020 12:00:00 AM EDT eCW1 ([facility]) Unknown [address] [facility] [address] [place] [address] 07/15/2020 12:00:00 AM EDT eCW1 ([facility]) Outpatient [address] [facility] [address] [place] [address] 07/11/2020 12:00:00 AM EDT eCW1 ([facility]) Outpatient [address] [facility] [address] [place] [address] 01/11/2020 12:00:00 AM EDT eCW1 ([facility]) Unknown [address] [facility] [address] [place] [address] 12/26/2019 12:00:00 AM EDT eCW1 ([facility]) Immunizations Vaccine Date Status Description Data Source(s) COVID-19 VACCINE Moderna 01/26/2021 12:00:00 AM EST completed [employer] Vaccine Series Complete: YESThis Data wa s Submitted to [facility] Via [employer]. COVID-19 VACCINE Moderna 06/12/2020 12:00:00 AM EDT completed [employer] Vaccine Series Complete: YESThis Data wa s Submitted to [facility] Via [employer]. COVID-19 dose #2 given elsewhere Unspecified 06/11/2020 11:2 8:00 AM EDT completed eCW1 ([facility]) COVID-19 dose #2 given elsewhere Unspecified 06/11/2020 11:2 8:00 AM EDT completed eCW1 ([facility]) COVID-19 dose #2 given elsewhere Unspecified 06/11/2020 11:2 8:00 AM EDT completed eCW1 ([facility]) COVID-19 dose #2 given elsewhere Unspecified 06/11/2020 11:2 8:00 AM EDT completed eCW1 ([facility]) COVID-19 dose #2 given elsewhere Unspecified 06/11/2020 11:2 8:00 AM EDT completed eCW1 ([facility]) COVID-19 dose #2 given elsewhere Unspecified 06/11/2020 11:2 8:00 AM EDT completed eCW1 ([facility]) COVID-19 dose #2 given elsewhere Unspecified 06/11/2020 11:2 8:00 AM EDT completed eCW1 ([facility]) COVID-19 dose #2 given elsewhere Unspecified 06/11/2020 11:2 8:00 AM EDT completed eCW1 ([facility]) COVID-19 dose #1 given elsewhere Unspecified 05/12/2020 11:2 9:00 AM EST completed eCW1 ([facility]) COVID-19 dose #1 given elsewhere Unspecified 05/12/2020 11:2 9:00 AM EST completed eCW1 ([facility]) COVID-19 dose #1 given elsewhere Unspecified 05/12/2020 11:2 9:00 AM EST completed eCW1 ([facility]) COVID-19 dose #1 given elsewhere Unspecified 05/12/2020 11:2 9:00 AM EST completed eCW1 ([facility]) COVID-19 dose #1 given elsewhere Unspecified 05/12/2020 11:2 9:00 AM EST completed eCW1 ([facility]) COVID-19 dose #1 given elsewhere Unspecified 05/12/2020 11:2 9:00 AM EST completed eCW1 ([facility]) COVID-19 dose #1 given elsewhere Unspecified 05/12/2020 11:2 9:00 AM EST completed eCW1 ([facility]) COVID-19 dose #1 given elsewhere Unspecified 05/12/2020 11:2 9:00 AM EST completed eCW1 ([facility]) Medications Medication Brand Name Start Date Product Form Dose Route Admi nistrative Instructions Pharmacy Instructions Status Indications Reaction Description Data Source(s) Clindamycin 300 MG Oral Capsule CLINDAMYCIN HCL 01/12/2021 12:00 :00 AM EDT capsule 21 TAKE ONE CAPSULE BY MOUTH EVERY 8 HOURS UNTIL GONE TAKE ONE CAPSULE BY MOUTH EVERY 8 HOURS UNTIL GONE SOLD: 01/12/2021 [facility] 10 mcg (400 unit) 01/11/2021 12:00:00 AM EDT tablet 90 TAKE ONE TABLET BY MOUTH EVERY DAY TAKE ONE TABLET BY MOUTH EVERY DAY SOLD: 01/12/2021 [facility] Amlodipine 2.5 MG Oral Tablet Amlodipine Besylate 2.5 MG Amlodipine Besylate 2.5 MG 01/09/2021 12:00:00 AM EDT 1.0 {tablet} activ e Amlodipine Besylate 2.5 MG eCW1 ([facility]) 2.5 mg 01/09/2021 12:00:00 AM EDT tablet 30 TAKE ONE TABLET BY MOUTH EVERY DAY TAKE ONE TABLET BY MOUTH EVERY DAY SOLD: 02/05/2021 [facility] Tobramycin 3 MG/ML Ophthalmic Solution Tobramycin 0.3 % Tobr amycin 0.3 % 01/09/2021 12:00:00 AM EDT 1.0 {drop_into_affected_eye} active Tobramycin 0.3 % eCW1 ([facility]) 0.3 % 01/09/2021 12:00:00 AM EDT drops 5 INSTILL 1 DROP INTO AFFECTED EYE EVERY 4 HOURS FOR 7 DAYS INSTILL 1 DROP INTO AFFECTED EYE EVERY 4 HOURS FOR 7 DAYS SOLD: 01/09/2021 [facility] Betamethasone 0.5 MG/ML / Clotrimazole 1 0 MG/ML Topical Cream Clotrimazole- Betamethasone 1-0.05 % Clotrimazole-Betamethasone 1-0.05 % 01/09/2021 12:00:0 0 AM EDT 1.0 {application} active Clotri mazole-Betamethasone 1-0.05 % eCW1 ([facility]) 20 mg 01/09/2021 12:00:00 AM EDT capsule,delayed release (DR/EC) 90 TAKE ONE CAPSULE BY MOUTH EVERY DAY 30 MINUTES BEFORE MORNING MEAL TAKE ONE CAPSULE BY MOUTH EVERY DAY 30 MINUTES BEFORE MORNING MEAL SOLD: 01/09/2021 [facility] 2.5 mg 01/09/2021 12:00:00 AM EDT tablet 30 TAKE ONE TABLET BY MOUTH EVERY DAY TAKE ONE TABLET BY MOUTH EVERY DAY SOLD: 01/09/2021 [facility] 500 mg 01/09/2021 12:00:00 AM EDT tablet 20 TAKE ONE TABLET BY MOUTH TWICE A DAY TAKE ONE TABLET BY MOUTH TWICE A DAY SOLD: 01/09/2021 [facility] Betamethasone 0.5 MG/ML / Clotrimazole 10 MG/ML Topica l Cream 1-0.05 % CLOTRIMAZOLE/BETAMETHASONE DIP 01/09/2021 12:00:00 AM EDT cream 30 APPLY TWO TIMES A DAY APPLY TWO TIMES A DAY SOLD: 01/09/2021 [facility] Acetaminophen 325 MG / Hydrocodone Bitartrate 10 MG Or al Tablet 10-325 mg HYDROCODONE/ACETAMINOPHEN 07/10/2020 12:00:00 AM EDT tablet 16 TAKE ONE TABLET BY MOUTH EVERY 6 TO 8 HOURS NEEDED MAXIMUM DAILY DOSE = FOUR TABLETS TAKE ONE TABLET BY MOUTH EVERY 6 TO 8 HOURS NEEDED MAXIMUM DAILY DOSE = FOUR TABLETS SOLD: 07/14/2020 [facility] 800 mg 07/07/2020 12:00:00 AM EDT tablet 20 TAKE ONE TABLET BY MOUTH EVERY 6 TO 8 HOURS NEEDED FOR PAIN TAKE ONE TABLET BY MOUTH EVERY 6 TO 8 HO URS NEEDED FOR PAIN SOLD: 07/07/2020 [facility] 300 mg 07/07/2020 12:00:00 AM EDT capsule 28 TAKE ONE CAPSULE BY MOUTH EVERY 6 HOURS TAKE ONE CAPSULE BY MOUTH EVERY 6 HOURS SOLD: 07/07/2020 [facility] Vitamin D3 10 MCG (400 UNIT) Vitamin D3 10 MCG (400 UNIT) 12:00:00 AM EDT 1.0 {capsule} suspended Vitamin D3 10 MCG (400 UNIT) eCW1 ([facility]) Vitamin D3 10 MCG (400 UNIT) Vitamin D3 10 MCG (400 UNIT) 12:00:00 AM EDT 1.0 {capsule} suspended Vitamin D3 10 MCG (400 UNIT) eCW1 ([facility]) 12 HR diclofenac epolamine 15 MG/HR Joiner sdermal Patch Diclofenac Epolamine 1.3 % Diclofenac Epolamine 1.3 % 01/11/2020 12:00:00 AM EDT suspended Diclofenac Epolamine 1.3 % [facility] ([facility]) Vitamin D3 10 MCG (400 UNIT) Vitamin D3 10 MCG (400 UNIT) 12:00:00 AM EDT 1.0 {capsule} suspended Vitamin D3 10 MCG (400 UNIT) eCW1 ([facility]) 12 HR diclofenac epolamine 15 MG/HR Joiner sdermal Patch Diclofenac Epolamine 1.3 % Diclofenac Epolamine 1.3 % 01/11/2020 12:00:00 AM EDT active Diclofenac Epolamine 1.3 % eCW1 ([facility]) Vitamin D3 10 MCG (400 UNIT) Vitamin D3 10 MCG (400 UNIT) 12:00:00 AM EDT 1.0 {capsule} suspended Vitamin D3 10 MCG (400 UNIT) eCW1 ([facility]) 12 HR diclofenac epolamine 15 MG/HR Joiner sdermal Patch Diclofenac Epolamine 1.3 % Diclofenac Epolamine 1.3 % 01/11/2020 12:00:00 AM EDT suspended Diclofenac Epolamine 1.3 % eCW1 ([facility]) Omeprazole 20 MG Delayed Release Oral Capsule Omeprazole 20 MG 01/11/2020 12:00:00 AM EDT active Omeprazo le 20 MG eCW1 ([facility]) Vitamin D3 10 MCG (400 UNIT) Vitamin D3 10 MCG (400 UNIT) 12:00:00 AM EDT 1.0 {capsule} suspended Vitamin D3 10 MCG (400 UNIT) eCW1 ([facility]) 12 HR diclofenac epolamine 15 MG/HR Joiner sdermal Patch Diclofenac Epolamine 1.3 % Diclofenac Epolamine 1.3 % 01/11/2020 12:00:00 AM EDT suspended Diclofenac Epolamine 1.3 % eCW1 ([facility]) Vitamin D3 10 MCG (400 UNIT) Vitamin D3 10 MCG (400 UNIT) 12:00:00 AM EDT 1.0 {capsule} suspended Vitamin D3 10 MCG (400 UNIT) eCW1 ([facility]) 12 HR diclofenac epolamine 15 MG/HR Joiner sdermal Patch Diclofenac Epolamine 1.3 % Diclofenac Epolamine 1.3 % 01/11/2020 12:00:00 AM EDT suspended Diclofenac Epolamine 1.3 % eCW1 ([facility]) 12 HR diclofenac epolamine 15 MG/HR Joiner sdermal Patch Diclofenac Epolamine 1.3 % Diclofenac Epolamine 1.3 % 01/11/2020 12:00:00 AM EDT suspended Diclofenac Epolamine 1.3 % eCW1 ([facility]) 12 HR diclofenac epolamine 15 MG/HR Joiner sdermal Patch Diclofenac Epolamine 1.3 % Diclofenac Epolamine 1.3 % 01/11/2020 12:00:00 AM EDT suspended Diclofenac Epolamine 1.3 % eCW1 ([facility]) Vitamin D3 10 MCG (400 UNIT) Vitamin D3 10 MCG (400 UNIT) 12:00:00 AM EDT 1.0 {capsule} suspended Vitamin D3 10 MCG (400 UNIT) eCW1 ([facility]) Vitamin D3 10 MCG (400 UNIT) Vitamin D3 10 MCG (400 UNIT) 12:00:00 AM EDT 1.0 {capsule} active Vitamin D3 10 MCG (400 UNIT) eCW1 ([facility]) 12 HR diclofenac epolamine 15 MG/HR Joiner sdermal Patch Diclofenac Epolamine 1.3 % Diclofenac Epolamine 1.3 % 01/11/2020 12:00:00 AM EDT suspended Diclofenac Epolamine 1.3 % eCW1 ([facility]) 500 mg 06/05/2019 12:00:00 AM EDT tablet 20 TAKE ONE TABLET BY MOUTH TWICE A DAY TAKE ONE TABLET BY MOUTH TWICE A DAY SOLD: 01/09/2020 [facility] Insurance Providers Payer name Policy type / Coverage type Policy ID Covered alliance party ID Covered alliance party's relationship to forbes Policy Forbes Plan Information [facility] Commercial [id number] Self [id number] [facility] Commercial [id number] Self [id number] MEDICAID M [id number] Self [id number] [facility] COMMUNITY PLAN [facility] [id number] SP [id number] UN COMMUNITY PLAN [facility] [id number] SP [id number] [place] [id number] SP [id number] ANSI-Medicaid [id number] ANSI-Medicaid [id number] ANSI-Medicaid [id number] ANSI-Medicaid [id number] ANSI-Medicaid [id number] ANSI-Medicaid [id number] ANSI-Medicaid [id number] ANSI-Medicaid [id number] ANSI-Medicaid [id number] ANSI-Medicaid [id number] ANSI-Medicaid [id number] ANSI-Medicaid [id number] ANSI-Medicaid [id number] ANSI-Medicaid [id number] ANSI-Medicaid [id number] ANSI-Medicaid [id number] ANSI-Medicaid [id number] ANSI-Medicaid [id number] ANSI-Medicaid [id number] ANSI-Medicaid [id number] ANSI-Medicaid [id number] ANSI-Medicaid [id number] ANSI-Medicaid [id number] ANSI-Medicaid [id number] ANSI-Medicaid [id number] ANSI-Medicaid [id number] ANSI-Medicaid [id number] ANSI-Medicaid [id number] ANSI-Medicaid [id number] ANSI-Medicaid [id number] ANSI-Medicaid [id number] ANSI-Medicaid [id number] ANSI-Medicaid [id number] ANSI-Medicaid [id number] [facility] Commercial [id number] Self [id number] [facility] Commercial [id number] Self [id number] [facility] Health Maintenance Organization (HMO) [id number] Self [id number] [facility] Commercial [id number] Self [id number] [facility] Commercial [id number] Self 1 [id number] [facility] Health Maintenance Organization (HMO) [id number] Self [facility] [id number] Self [id number] MEDICAID [id number] SP [id number] [employer] [id number] SP [id number] [employer] UNAVAILABLE SP UNAVAILABLE HMO BLUE [id number] SP [id number] [facility] BLUE [id number] SP [id number] [place] [id number] SP [id number] S [id number] MEDICARE [id number] SP [id number] [id number] [facility] MEDICARE [id number] Problems, Conditions, and Diagnoses Code Display Name Description Problem Type Effective Dates Data Source(s) K80.20 09786680 Calculus of gallblad josse without cholecystitis without obstruction Problem 07/29/2020 12:00:00 AM EDT eCW1 ([facility]) K21.9 [id number] GERD without esophagitis Problem 01/11/2020 12:00:00 AM EDT eCW1 ([facility]) E55.9 [id number] Vitamin D deficiency Problem 01/11/2020 12:0 0:00 AM EDT eCW1 ([facility]) Surgeries/Procedures No Information Results ID Date Data Source MAGNESIUM LEVEL 01/09/2021 12:00:00 AM EDT eCW1 ([facility]) Name Value Range Interpretation Code Description Data Natali rce(s) Supporting Document(s) 2.3 1.8-2.4 MAGNESIUM LEVEL eCW1 ([facility]) ID Date Data Source LIPID PANEL (CARDIAC RISK) 01/09/2021 12:00:00 AM EDT eCW1 ( [facility]) Name Value Range Interpretation Code Description Data Natali rce(s) Supporting Document(s) Triglyceride [Mass/volume] in Serum or Plasma by calculation 107 <150 TRIGLYCERIDES LEVEL eCW1 ([facility]) 134 NON-HDL-C eCW1 ([facility]) Cholesterol in HDL [Moles/volume] in Serum or Plasma 53 >40 HDL CHOLESTEROL eCW1 ([facility]) Cholesterol [Moles/volume] in Serum or Plasma 187 <200 CHOLESTEROL LEVEL eCW1 ([facility]) Cholesterol in LDL [Mass/volume] in Serum or Plasma by calculation 113 <100 LDL CHOLESTEROL [facility] ([facility]) 3.528 <5 CHOLESTEROL RISK RATIO eCW ([facility]) ID Date Data Source [id number] 01/09/2021 12:00:00 AM EDT eCW1 ([facility]) Name Value Range Interpretation Code Description Data Natali rce(s) Supporting Document(s) Hemoglobin A1c/Hemoglobin.total in Blood 5.7 HEMOGLOBIN A1c eCW1 ([facility]) ID Date Data Source ERYTHROCYTE SEDIMENTATION RATE 01/09/2021 12:00:00 AM EDT eC W1 ([facility]) Name Value Range Interpretation Code Description Data Natali rce(s) Supporting Document(s) 9 0-30 ERYTHROCYTE SEDIMENTATION RATE eCW1 ([facility]) ID Date Data Source C REACTIVE PROTEIN QUANTITATIV (At [facility]) 01/09/2021 12:00 :00 AM EDT eCW1 ([facility]) Name Value Range Interpretation Code Description Data Natali rce(s) Supporting Document(s) 0.43 0.00-0.30 C REACTIVE PROTEIN QUANTI TATIV eCW1 ([facility]) ID Date Data Source Comprehensive Metabolic Profile (CMP) 01/09/2021 12:00:00 AM EDT eCW1 ([facility]) Name Value Range Interpretation Code Description Data Natali rce(s) Supporting Document(s) 119 70-100 GLUCOSE, FASTING eCW1 ([facility]) 20 7-18 BLOOD UREA NITROGEN eCW1 (Replaced by [facility]) 57.7 >45 GLOMERULAR FILTRATION RATE eCW 1 ([facility]) 141 136-145 SODIUM LEVEL eCW1 ([facility]) 4.0 3.5-5.1 POTASSIUM SERUM eCW1 ([facility] hospital) 1.02 0.55-1.30 CREATININE FOR GFR eCW1 ([facility]) 65 7-37 AST/SGOT eCW1 ([facility]) 9.9 8.8-10.2 CALCIUM LEVEL eCW1 ([facility]) 31 21-32 CARBON DIOXIDE LEVEL eCW1 ([facility]) 105 98-107 CHLORIDE LEVEL eCW1 ([facility]) 86 12-78 ALT/SGPT eCW1 ([facility]) 84 45-117 ALKALINE PHOSPHATASE eCW1 ([facility]) 0.5 0.2-1.0 BILIRUBIN,TOTAL eCW1 ([facility] hospital) 7.9 6.4-8.2 TOTAL PROTEIN eCW1 ([facility]) 4.4 3.2-5.2 ALBUMIN eCW1 ([facility]) 1.3 1.2-2.2 ALBUMIN/GLOBULIN RATIO eCW1 ([facility]) ID Date Data Source CBC with Differential 01/09/2021 12:00:00 AM EDT eCW1 ([facility]) Name Value Range Interpretation Code Description Data Natali rce(s) Supporting Document(s) 7.5 4.0-10.0 WHITE BLOOD COUNT eCW1 ([facility]) 5.65 4.00-5.40 RED BLOOD COUNT eCW1 ([facility] hospital) 89.0 80.0-96.0 MEAN CORPUSCULAR VOLUME e CW1 ([facility]) 50.3 36.0-47.0 HEMATOCRIT eCW1 ([facility]) 16.6 12.0-15.5 HEMOGLOBIN eCW1 ([facility] [facility]) 12.7 11.5-14.5 RED CELL DISTRIBUTION WID TH eCW1 ([facility]) 232 150-450 PLATELET COUNT, AUTOMATED eCW1 ([facility]) 29.4 27.0-33.0 MEAN CORPUSCULAR HEMOGLOB IN eCW1 ([facility]) 33.0 32.0-36.5 MEAN CORPUSCULAR HGB CONC eCW1 ([facility]) 64.0 36.0-66.0 NEUTROPHILS % eCW1 ([facility]) 26.2 24.0-44.0 LYMPH % eCW1 ([facility]) 1.2 0.0-3.0 EOS % eCW1 ([facility]) 7.8 2.0-8.0 MONO % eCW1 ([facility]) 4.8 1.5-8.5 NEUTROPHILS # eCW1 ([facility]) 0.4 0.0-1.0 BASO % eCW1 ([facility]) 0.6 0.0-0.8 MONO # eCW1 ([facility]) 2.0 1.5-5.0 LYMPH # eCW1 ([facility]) 0.1 0.0-0.5 EOS # eCW1 ([facility]) 0.0 0.0-0.2 BASO # eCW1 ([facility]) Procedure Social History Code Duration Value Status Description Data Source(s ) Smoking 01/09/2021 12:00:00 AM EDT Never Smoker completed Never S moker eCW1 ([facility]) Smoking 07/11/2020 12:00:00 AM EDT Never Smoker completed Never S moker eCW1 ([facility]) Smoking 07/11/2020 12:00:00 AM EDT Never Smoker completed Never S moker eCW1 ([facility]) Smoking 07/11/2020 12:00:00 AM EDT Never Smoker completed Never S moker eCW1 ([facility]) Smoking 07/11/2020 12:00:00 AM EDT Never Smoker completed Never S moker eCW1 ([facility]) Smoking 07/11/2020 12:00:00 AM EDT Never Smoker completed Never S moker eCW1 ([facility]) Smoking 07/11/2020 12:00:00 AM EDT Never Smoker completed Never S moker eCW1 ([facility]) Smoking 07/11/2020 12:00:00 AM EDT Never Smoker completed Never S moker eCW1 ([facility]) Smoking 01/11/2020 12:00:00 AM EDT Never Smoker completed Never S moker eCW1 ([facility]) Vital Signs ID Date Data Source UNK Name Value Range Interpretation Code Description Data Source(s) Body weight 168 [lb_av] 168 [lb_av] eCW1 ([facility]) Body weight 76.2 kg 76.2 kg eCW1 ([facility]) Body height 61.5 [in_i] 61.5 [in_i] eCW1 ([facility]) Body mass index (BMI) [Ratio] 31.23 kg/m2 31.23 kg/m2 eCW1 ([facility]) Heart rate 71 /min 71 /min eCW1 [facility] Respiratory rate 16 /min 16 /min eCW1 ([facility]) Body temperature 97.6 [degF] 97.6 [degF] eCW1 ( [facility]) Systolic blood pressure 196 mm[Hg] 196 mm[Hg] e CW1 ([facility]) Diastolic blood pressure 126 mm[Hg] 126 mm[Hg] eCW1 ([facility]) Systolic blood pressure 152 mm[Hg] 152 mm[Hg] M EDENT ([facility], ) Diastolic blood pressure 88 mm[Hg] 88 mm[Hg] MEDENT ([facility], ) Heart rate 68 /min 68 /min [facility] ([facility], ) Body height 61 [in_i] 61 [in_i] MEDENT ([facility], ) 5'1" Body weight 171.38 [lb_av] 171.38 [lb_av] MEDEN T ([facility] [place]) Body mass index (BMI) [Ratio] 32.4 kg/m2 32.4 k g/m2 [facility] ([facility] [place]) [facility] body weight 105 [lb_av] 105 [lb_av] MEDEN T ([facility] [place]) Body weight 77.736 kg 77.736 kg [facility] ([facility]) Body surface area Derived from formula 1.77 m2 1.77 m2 [facility] ([facility] [place]) Body weight 176 [lb_av] 176 [lb_av] eCW1 ([facility]) Body height 61.5 [in_i] 61.5 [in_i] eCW1 ([facility]) Body mass index (BMI) [Ratio] 32.71 kg/m2 32.71 kg/m2 eCW1 ([facility]) Heart rate 76 /min 76 /min eCW1 ([facility]) Respiratory rate 16 /min 16 /min eCW1 ([facility]) Body temperature 96.8 [degF] 96.8 [degF] eCW1 ( [facility]) Systolic blood pressure 178 mm[Hg] 178 mm[Hg] e CW1 ([facility]) Diastolic blood pressure 94 mm[Hg] 94 mm[Hg] eCW1 ([facility]) Body weight 177.12 [lb_av] 177.12 [lb_av] eCW1 ([facility]) Body height 61.5 [in_i] 61.5 [in_i] eCW1 ([facility]) Body temperature 97.2 [degF] 97.2 [degF] eCW1 ( [facility]) Systolic blood pressure 177 mm[Hg] 177 mm[Hg] e CW1 ([facility]) Diastolic blood pressure 107 mm[Hg] 107 mm[Hg] eCW1 ([facility]) Body mass index (BMI) [Ratio] 32.92 kg/m2 32.92 kg/m2 eCW1 ([facility]) Heart rate 68 /min 68 /min eCW1 ([facility]) Respiratory rate 16 /min 16 /min eCW1 ([facility]) Patient Treatment Plan of Care Planned Activity Planned Date Details Description Data Source (s) Tobramycin 3 MG/ML Ophthalmic Solution 01/09/2021 12:00:00 AM EDT eCW1 ([facility]) Betamethasone 0.5 MG/ML / Clotrimazole 10 MG/ML Topica l Cream 01/09/2021 12:00:00 AM EDT eCW1 ([facility]) Amlodipine 2.5 MG Oral Tablet 01/09/2021 12:00:00 AM EDT eCW1 ([facility]) Vitamin D3 10 MCG (400 UNIT) 01/11/2020 12:00:00 AM EDT eCW1 ([facility]) 12 HR diclofenac epolamine 15 MG/HR Transdermal Patch 01/11/2020 12:00:00 AM EDT eCW1 ([facility]) Omeprazole 20 MG Delayed Release Oral Capsule 01/11/2020 12:00:00 A M EDT eCW1 ([facility])
[2021-02-09] MEDS ORDERED: AMLO2.5T3 (14:26)
[2021-02-09 15:03] LABS: BASO % 0.2 % (0.0-1.0); EOS # 0.1 10^3/uL (0.0-0.5); EOS % 0.6 % (0.0-3.0); HEMATOCRIT 47.4 % (36.0-47.0); HEMOGLOBIN 15.6 g/dl (12.0-15.5); LYMPH # 1.6 10^3/uL (1.5-5.0); LYMPH % 11.5 % (24.0-44.0); MEAN CORPUSCULAR HEMOGLOBIN 28.7 pg (27.0-33.0); MEAN CORPUSCULAR HGB CONC 32.9 g/dl (32.0-36.5); MEAN CORPUSCULAR VOLUME 87.1 fl (80.0-96.0); MONO # 1.3 10^3/uL (0.0-0.8); MONO % 9.8 % (2.0-8.0); NEUTROPHILS # 10.6 10^3/uL (1.5-8.5); NEUTROPHILS % 77.6 % (36.0-66.0); PLATELET COUNT, AUTOMATED 223 10^3/uL (150-450); RED BLOOD COUNT 5.44 10^6/uL (4.00-5.40); WHITE BLOOD COUNT 13.6 10^3/uL (4.0-10.0)
[2021-02-09 15:35] LABS: ALBUMIN 3.9 GM/DL (3.2-5.2); ALT/SGPT 46 U/L (12-78); AMYLASE 47 U/L (25-115); BILIRUBIN,DIRECT 0.1 MG/DL (0.0-0.2); BILIRUBIN,TOTAL 0.4 MG/DL (0.2-1.0); BLOOD UREA NITROGEN 10 MG/DL (7-18); CALCIUM LEVEL 9.2 MG/DL (8.8-10.2); CARBON DIOXIDE LEVEL 29 MEQ/L (21-32); CHLORIDE LEVEL 106 MEQ/L (98-107); CREATININE FOR GFR 0.94 MG/DL (0.55-1.30); GLOMERULAR FILTRATION RATE > 60.0 (>45); GLUCOSE, FASTING 124 MG/DL (70-100); POTASSIUM SERUM 3.6 MEQ/L (3.5-5.1); SODIUM LEVEL 141 MEQ/L (136-145); TOTAL PROTEIN 7.5 GM/DL (6.4-8.2)
[2021-02-09 17:46] VITALS: BP 134/78
[2021-02-09] MEDS ORDERED: FIDA200TA PO (20:09)
[2021-02-09] MEDS ORDERED: NS 1,000 ML IV ONE (20:10)
--- OUTSIDE RECORDS SUMMARY | 2021-02-09 20:33 | CCD ---
Author Author [facility] Organization [facility] Address Unknown Phone Unavailable Care Team Providers Care Tour Manager Name Role Phone Jessy Dee JR, MD [...] is protected by Article 27-F of the [facility] Public Health law. If you continue you may have access to information: Regarding HIV / AIDS; Provided by facilities licensed or operated by the [facility] Office of Mental Health; or Provided by the [facility] Office for People With Developmental Disabilities. If such information is present, then the following [facility] mandated warning applies: This information has [...] law may result in a fine or longterm sentence or both. A general authorization for the release of medical or other information is NOT sufficient authorization for further disc losure. Family History Family Member Name Family Member Gender Family Member Status Date o f Status Description Data Source(s) Unknown Unknown Problem MEDENT ([facility]) PGM Unknown Unknown Problem [facility] ([facility]) Unknown Unknown Problem MEDENT ([facility]) Encounters Encounter Providers Location Date Indications Data Source(s ) Outpatient [address] [facility] [place] [address] 01/09/2021 12:00:00 AM EDT eCW1 ([facility]) Unknown [address] [facility] [place] [address] 08/25/2020 12:00:00 AM EDT eCW1 ([facility]) Outpatient Attender: Rc Sy/Lizzie/Boogie/Ronald mcnair 08/13/2020 02:30:00 PM EDT MEDENT ([facility]) Unknown [address] [facility] [place] [address] 08/13/2020 12:00:00 AM EDT eCW1 ([facility]) Unknown [address] [facility] [place] [address] 08/13/2020 12:00:00 AM EDT eCW1 ([facility]) Unknown [address] [facility] [place] [address] 08/13/2020 12:00:00 AM EDT eCW1 ([facility]) Unknown [address] [facility] [place] [address] 07/28/2020 12:00:00 AM EDT eCW1 ([facility]) [place] [address] [facility] [address] [place] [address] 07/15/2020 12:00:00 AM EDT eCW1 ([facility]) [place]patient [address] [facility] [address] [place] [address] 07/11/2020 12:00:00 AM EDT eCW1 ([facility]) [place]patient [address] [facility] [address] [place] [address] 01/11/2020 12:00:00 AM EDT eCW1 ([facility]) Unknown [address] [facility] [address] [place] [address] 12/26/2019 12:00:00 AM EDT eCW1 ([facility]) Immunizations Vaccine Date Status Description Data Source(s) COVID-19 VACCINE Moderna 01/26/2021 12:00:00 AM EST completed [facility] Vaccine Series Complete: YESThis Data wa s Submitted to [facility] Via [employer]. COVID-19 VACCINE Moderna 06/12/2020 12:00:00 AM EDT completed [facility] Vaccine Series Complete: YESThis Data wa s Submitted to [facility] Via [employer]. COVID-19 dose #2 given elsewhere Unspecified 06/11/2020 11:2 8:00 AM EDT completed eCW1 ([facility]) COVID-19 dose #2 given elsewhere Unspecified 06/11/2020 11:2 8:00 AM EDT completed eCW1 ([facility]) COVID-19 dose #2 given elsewhere Unspecified 06/11/2020 11:2 8:00 AM EDT completed eCW1 ([facility]) COVID-19 dose #2 given elsewhere Unspecified 06/11/2020 11:2 8:00 AM EDT completed eCW1 ([facility]) COVID-19 dose #2 given elsewhere Unspecified 06/11/2020 11:2 8:00 AM EDT completed eCW1 ([facility]) COVID-19 dose #2 given elsewhere Unspecified 06/11/2020 11:2 8:00 AM EDT completed eCW1 ([facility]) COVID-19 dose #2 given elsewhere Unspecified 06/11/2020 11:2 8:00 AM EDT completed eCW1 ([facility]) COVID-19 dose #2 given elsewhere Unspecified 06/11/2020 11:2 8:00 AM EDT completed eCW1 ([facility]) COVID-19 dose #1 given elsewhere Unspecified 05/12/2020 11:2 9:00 AM EST completed eCW1 ([facility]) COVID-19 dose #1 given elsewhere Unspecified 05/12/2020 11:2 9:00 AM EST completed eCW1 ([facility]) COVID-19 dose #1 given elsewhere Unspecified 05/12/2020 11:2 9:00 AM EST completed eCW1 ([facility]) COVID-19 dose #1 given elsewhere Unspecified 05/12/2020 11:2 9:00 AM EST completed eCW1 ([facility]) COVID-19 dose #1 given elsewhere Unspecified 05/12/2020 11:2 9:00 AM EST completed eCW1 ([facility]) COVID-19 dose #1 given elsewhere Unspecified 05/12/2020 11:2 9:00 AM EST completed eCW1 ([facility]) COVID-19 dose #1 given elsewhere Unspecified 05/12/2020 11:2 9:00 AM EST completed eCW1 ([facility]) COVID-19 dose #1 given elsewhere Unspecified 05/12/2020 11:2 9:00 AM EST completed eCW1 ([facility]) Medications Medication Brand Name Start Date Product [...] TABLET BY MOUTH EVERY DAY SOLD: 01/12/2021 [facility] Amlodipine 2.5 MG Oral Tablet Amlodipine Besylate 2.5 MG Amlodipine Besylate 2.5 MG 01/09/2021 12:00:00 AM EDT 1.0 {tablet} activ e Amlodipine Besylate 2.5 MG eCW1 ([facility]) 2.5 mg 01/09/2021 12:00:00 AM EDT tablet 30 TAKE ONE TABLET BY MOUTH EVERY DAY TAKE ONE TABLET BY MOUTH EVERY DAY SOLD: 02/05/2021 [facility] Tobramycin 3 MG/ML Ophthalmic Solution Tobramycin 0.3 % Tobr amycin 0.3 % 01/09/2021 12:00:00 AM EDT 1.0 {drop_into_affected_eye} active Tobramycin 0.3 % eCW1 ([facility]) 0.3 % 01/09/2021 12:00:00 AM EDT drops 5 INSTILL 1 DROP INTO AFFECTED EYE EVERY 4 HOURS FOR 7 DAYS INSTILL 1 DROP INTO AFFECTED EYE EVERY 4 HOURS FOR 7 DAYS SOLD: 01/09/2021 [facility] Betamethasone 0.5 MG/ML / Clotrimazole 1 0 MG/ML Topical Cream Clotrimazole- Betamethasone 1-0.05 % Clotrimazole-Betamethasone 1-0.05 % 01/09/2021 12:00:0 0 AM EDT 1.0 {application} active Clotri mazole-Betamethasone 1-0.05 % eCW1 ([facility]) 20 mg 01/09/2021 12:00:00 AM EDT capsule,delayed release (DR/EC) 90 TAKE ONE CAPSULE BY MOUTH EVERY DAY 30 MINUTES BEFORE MORNING MEAL TAKE ONE CAPSULE BY MOUTH EVERY DAY 30 MINUTES BEFORE MORNING MEAL SOLD: 01/09/2021 [facility] 2.5 mg 01/09/2021 12:00:00 AM EDT tablet 30 TAKE ONE TABLET BY MOUTH EVERY DAY TAKE ONE TABLET BY MOUTH EVERY DAY SOLD: 01/09/2021 [facility] 500 mg 01/09/2021 12:00:00 AM EDT tablet 20 TAKE ONE TABLET BY MOUTH TWICE A DAY TAKE ONE TABLET BY MOUTH TWICE A DAY SOLD: 01/09/2021 [facility] Betamethasone 0.5 MG/ML / Clotrimazole 10 MG/ML [...] Vitamin D3 10 MCG (400 UNIT) eCW1 ([facility]) Vitamin D3 10 MCG (400 UNIT) Vitamin D3 10 MCG (400 UNIT) 12:00:00 AM EDT 1.0 {capsule} suspended Vitamin D3 10 MCG (400 UNIT) eCW1 ([facility]) 12 HR diclofenac epolamine 15 MG/HR Joiner sdermal Patch Diclofenac Epolamine 1.3 % Diclofenac Epolamine 1.3 % 01/11/2020 12:00:00 AM EDT suspended Diclofenac Epolamine 1.3 % [facility] ([facility]) Vitamin D3 10 MCG (400 UNIT) Vitamin D3 10 MCG (400 UNIT) 12:00:00 AM EDT 1.0 {capsule} suspended Vitamin D3 10 MCG (400 UNIT) eCW1 ([facility]) 12 HR diclofenac epolamine 15 MG/HR Joiner sdermal Patch Diclofenac Epolamine 1.3 % Diclofenac Epolamine 1.3 % 01/11/2020 12:00:00 AM EDT active Diclofenac Epolamine 1.3 % eCW1 ([facility]) Vitamin D3 10 MCG (400 UNIT) Vitamin D3 10 MCG (400 UNIT) 12:00:00 AM EDT 1.0 {capsule} suspended Vitamin D3 10 MCG (400 UNIT) eCW1 ([facility]) 12 HR diclofenac epolamine 15 MG/HR Joiner sdermal Patch Diclofenac Epolamine 1.3 % Diclofenac Epolamine 1.3 % 01/11/2020 12:00:00 AM EDT suspended Diclofenac Epolamine 1.3 % eCW1 ([facility]) Omeprazole 20 MG Delayed Release Oral Capsule Omeprazole 20 MG 01/11/2020 12:00:00 AM EDT active Omeprazo le 20 MG eCW1 ([facility]) Vitamin D3 10 MCG (400 UNIT) Vitamin D3 10 MCG (400 UNIT) 12:00:00 AM EDT 1.0 {capsule} suspended Vitamin D3 10 MCG (400 UNIT) eCW1 ([facility]) 12 HR diclofenac epolamine 15 MG/HR Joiner sdermal Patch Diclofenac Epolamine 1.3 % Diclofenac Epolamine 1.3 % 01/11/2020 12:00:00 AM EDT suspended Diclofenac Epolamine 1.3 % eCW1 ([facility]) Vitamin D3 10 MCG (400 UNIT) Vitamin D3 10 MCG (400 UNIT) 12:00:00 AM EDT 1.0 {capsule} suspended Vitamin D3 10 MCG (400 UNIT) eCW1 ([facility]) 12 HR diclofenac epolamine 15 MG/HR Joiner sdermal Patch Diclofenac Epolamine 1.3 % Diclofenac Epolamine 1.3 % 01/11/2020 12:00:00 AM EDT suspended Diclofenac Epolamine 1.3 % eCW1 ([facility]) 12 HR diclofenac epolamine 15 MG/HR Joiner sdermal Patch Diclofenac Epolamine 1.3 % Diclofenac Epolamine 1.3 % 01/11/2020 12:00:00 AM EDT suspended Diclofenac Epolamine 1.3 % eCW1 ([facility]) 12 HR diclofenac epolamine 15 MG/HR Joiner sdermal Patch Diclofenac Epolamine 1.3 % Diclofenac Epolamine 1.3 % 01/11/2020 12:00:00 AM EDT suspended Diclofenac Epolamine 1.3 % eCW1 ([facility]) Vitamin D3 10 MCG (400 UNIT) Vitamin D3 10 MCG (400 UNIT) 12:00:00 AM EDT 1.0 {capsule} suspended Vitamin D3 10 MCG (400 UNIT) eCW1 ([facility]) Vitamin D3 10 MCG (400 UNIT) Vitamin D3 10 MCG (400 UNIT) 12:00:00 AM EDT 1.0 {capsule} active Vitamin D3 10 MCG (400 UNIT) eCW1 ([facility]) 12 HR diclofenac epolamine 15 MG/HR Joiner sdermal Patch Diclofenac Epolamine 1.3 % Diclofenac Epolamine 1.3 % 01/11/2020 12:00:00 AM EDT suspended Diclofenac Epolamine 1.3 % eCW1 ([facility]) 500 mg 06/05/2019 12:00:00 AM EDT tablet 20 TAKE ONE TABLET BY MOUTH TWICE A DAY TAKE ONE TABLET BY MOUTH TWICE A DAY SOLD: 01/09/2020 [facility] Insurance Providers Payer name Policy type / Coverage type Policy ID Covered constitution party ID Covered constitution party's relationship to forbes Policy Forbes Plan Information [facility] Commercial [id number] Self [id number] [facility] Commercial [id number] Self [id number] MEDICAID M [id number] Self [id number] [employer] COMM[employer] [facility] [id number] SP [id number] UN COMM[employer] [facility] [id number] SP [id number] EMEDNY [id number] SP [id number] ANSI-Medicaid [id number] ANSI-Medicaid [id number] ANSI-Medicaid [id number] ANSI-Medicaid [id number] ANSI-Medicaid [id number] ANSI-Medicaid [id number] ANSI-Medicaid [id number] ANSI-Medicaid [id number] ANSI-Medicaid [id number] ANSI-Medicaid [id number] ANSI-Medicaid [id number] ANSI-Medicaid [id number] ANSI-Medicaid [id number] ANSI-Medicaid [id number] ANSI-Medicaid [id number] ANSI-Medicaid [id number] ANSI-Medicaid [id number] ANSI-Medicaid [id number] ANSI-Medicaid [id number] ANSI-Medicaid [id number] ANSI-Medicaid [id number] ANSI-Medicaid [id number] ANSI-Medicaid [id number] ANSI-Medicaid [id number] ANSI-Medicaid [id number] ANSI-Medicaid [id number] ANSI-Medicaid [id number] ANSI-Medicaid [id number] ANSI-Medicaid [id number] ANSI-Medicaid [id number] ANSI-Medicaid [id number] ANSI-Medicaid [id number] ANSI-Medicaid [id number] ANSI-Medicaid [id number] FH Commercial [id number] Self [id number] [facility] Commercial [id number] Self 1 [id number] [facility] Health Maintenance Organization (HMO) [id number] Self [id number] [facility] Commercial [id number] Self [id number] [facility] Commercial [id number] Self 1 [id number] [facility] Health Maintenance Organization (O) [id number] Self [facility] [id number] Self [id number] MEDICAID [id number] SP [id number] BLUE [employer] PLAN [id number] SP [id number] BLUE CROSS ARCE PLAN UNAVAILABLE SP UNAVAILABLE HMO BLUE [id number] SP [id number] [facility] BLUE [id number] SP [id number] [place] [id number] SP [id number] S [id number] MEDICARE [id number] SP [id number] [id number] [facility] MEDIC[facility] [id number] Problems, Conditions, and Diagnoses Code Display Name Description Problem Type Effective Dates Data Source(s) K80.20 90204426 Calculus of gallblad josse without cholecystitis without obstruction Problem 07/29/2020 12:00:00 AM EDT eCW1 ([facility]) K21.9 [id number] GERD without esophagitis Problem 01/11/2020 12:00:00 AM EDT eCW1 ([facility]) E55.9 [id number] Vitamin D deficiency Problem 01/11/2020 12:0 0:00 AM EDT eCW1 ([facility]) Surgeries/Procedures No Information Results ID Date Data Source MAGNESIUM LEVEL 01/09/2021 12:00:00 AM EDT eCW1 ([facility]) Name Value Range Interpretation Code Description Data Natali rce(s) Supporting Document(s) 2.3 1.8-2.4 MAGNESIUM LEVEL eCW1 ([facility]) ID Date Data Source LIPID PANEL (CARDIAC RISK) 01/09/2021 12:00:00 AM EDT eCW1 ( [facility]) Name Value Range Interpretation Code Description Data Natali rce(s) Supporting Document(s) Triglyceride [Mass/volume] in Serum or Plasma by calculation 107 <150 TRIGLYCERIDES LEVEL eCW1 ([facility]) 134 NON-HDL-C eCW1 ([facility]) Cholesterol in HDL [Moles/volume] in Serum or Plasma 53 >40 HDL CHOLESTEROL eCW1 ([facility]) Cholesterol [Moles/volume] in Serum or Plasma 187 <200 CHOLESTEROL LEVEL eCW1 ([facility]) Cholesterol in LDL [Mass/volume] in Serum or Plasma by calculation 113 <100 LDL CHOLESTEROL [facility] ([facility]) 3.528 <5 CHOLESTEROL RISK RATIO eCW ([facility]) ID Date Data Source [id number] 01/09/2021 12:00:00 AM EDT eCW1 ([facility]) Name Value Range Interpretation Code Description Data Natali rce(s) Supporting Document(s) Hemoglobin A1c/Hemoglobin.total in Blood 5.7 HEMOGLOBIN A1c eCW1 ([facility]) ID Date Data Source ERYTHROCYTE SEDIMENTATION RATE 01/09/2021 12:00:00 AM EDT eC W1 ([facility]) Name Value Range Interpretation Code Description Data Natali rce(s) Supporting Document(s) 9 0-30 ERYTHROCYTE SEDIMENTATION RATE eCW1 ([facility]) ID Date Data Source C REACTIVE PROTEIN QUANTITATIV ([facility]) 01/09/2021 12:00 :00 AM EDT eCW1 ([facility]) Name Value Range Interpretation Code Description Data Natali rce(s) Supporting Document(s) 0.43 0.00-0.30 C REACTIVE PROTEIN QUANTI TATIV eCW1 ([facility]) ID Date Data Source Comprehensive Metabolic Profile (CMP) 01/09/2021 12:00:00 AM EDT eCW1 ([facility]) Name Value Range Interpretation Code Description Data Natali rce(s) Supporting Document(s) 119 70-100 GLUCOSE, FASTING eCW1 ([facility]) 20 7-18 BLOOD UREA NITROGEN eCW1 ([facility]) 57.7 >45 GLOMERULAR FILTRATION RATE eCW 1 ([facility]) 141 136-145 SODIUM LEVEL eCW1 ([facility]) 4.0 3.5-5.1 POTASSIUM SERUM eCW1 ([facility]) 1.02 0.55-1.30 CREATININE FOR GFR eCW1 ([facility]) 65 7-37 AST/SGOT eCW1 ([facility]) 9.9 8.8-10.2 CALCIUM LEVEL eCW1 ([facility]) 31 21-32 CARBON DIOXIDE LEVEL eCW1 ([facility]) 105 98-107 CHLORIDE LEVEL eCW1 ([facility]) 86 12-78 ALT/SGPT eCW1 ([facility]) 84 45-117 ALKALINE PHOSPHATASE eCW1 ([facility]) 0.5 0.2-1.0 BILIRUBIN,TOTAL eCW1 ([facility]) 7.9 6.4-8.2 TOTAL PROTEIN eCW1 ([facility]) 4.4 3.2-5.2 ALBUMIN eCW1 ([facility]) 1.3 1.2-2.2 ALBUMIN/GLOBULIN RATIO eCW1 ([facility]) ID Date Data Source CBC with Differential 01/09/2021 12:00:00 AM EDT eCW1 ([facility]) Name Value Range Interpretation Code Description Data Natali rce(s) Supporting Document(s) 7.5 4.0-10.0 WHITE BLOOD COUNT eCW1 ([facility]) 5.65 4.00-5.40 RED BLOOD COUNT eCW1 ([facility]) 89.0 80.0-96.0 MEAN CORPUSCULAR VOLUME e CW1 ([facility]) 50.3 36.0-47.0 HEMATOCRIT eCW1 ([facility]) 16.6 12.0-15.5 HEMOGLOBIN eCW1 ([facility] access hospital) 12.7 11.5-14.5 RED CELL DISTRIBUTION WID TH eCW1 ([facility]) 232 150-450 PLATELET COUNT, AUTOMATED eCW1 ([facility]) 29.4 27.0-33.0 MEAN CORPUSCULAR HEMOGLOB IN eCW1 ([facility]) 33.0 32.0-36.5 MEAN CORPUSCULAR HGB CONC eCW1 ([facility]) 64.0 36.0-66.0 NEUTROPHILS % eCW1 ([facility]) 26.2 24.0-44.0 LYMPH % eCW1 ([facility]) 1.2 0.0-3.0 EOS % eCW1 ([facility]) 7.8 2.0-8.0 MONO % eCW1 ([facility]) 4.8 1.5-8.5 NEUTROPHILS # eCW1 ([facility]) 0.4 0.0-1.0 BASO % eCW1 ([facility]) 0.6 0.0-0.8 MONO # eCW1 ([facility]) 2.0 1.5-5.0 LYMPH # eCW1 ([facility]) 0.1 0.0-0.5 EOS # eCW1 ([facility]) 0.0 0.0-0.2 BASO # eCW1 ([facility]) Procedure Social History Code Duration Value Status Description Data Source(s ) Smoking 01/09/2021 12:00:00 AM EDT Never Smoker completed Never S moker eCW1 ([facility]) Smoking 07/11/2020 12:00:00 AM EDT Never Smoker completed Never S moker eCW1 ([facility]) Smoking 07/11/2020 12:00:00 AM EDT Never Smoker completed Never S moker eCW1 ([facility]) Smoking 07/11/2020 12:00:00 AM EDT Never Smoker completed Never S moker eCW1 ([facility]) Smoking 07/11/2020 12:00:00 AM EDT Never Smoker completed Never S moker eCW1 ([facility]) Smoking 07/11/2020 12:00:00 AM EDT Never Smoker completed Never S moker eCW1 ([facility]) Smoking 07/11/2020 12:00:00 AM EDT Never Smoker completed Never S moker eCW1 ([facility]) Smoking 07/11/2020 12:00:00 AM EDT Never Smoker completed Never S moker eCW1 ([facility]) Smoking 01/11/2020 12:00:00 AM EDT Never Smoker completed Never S moker eCW1 ([facility]) Vital Signs ID Date Data Source UNK Name Value Range Interpretation Code Description Data Source(s) Body weight 168 [lb_av] 168 [lb_av] eCW1 ([facility]) Body weight 76.2 kg 76.2 kg eCW1 ([facility]) Body height 61.5 [in_i] 61.5 [in_i] eCW1 ([facility]) Body mass index (BMI) [Ratio] 31.23 kg/m2 31.23 kg/m2 eCW1 ([facility]) Heart rate 71 /min 71 /min eCW1 ([facility]) Respiratory rate 16 /min 16 /min eCW1 ([facility]) Body temperature 97.6 [degF] 97.6 [degF] eCW1 ( [facility]) Systolic blood pressure 196 mm[Hg] 196 mm[Hg] e CW1 ([facility]) Diastolic blood pressure 126 mm[Hg] 126 mm[Hg] eCW1 ([facility]) Systolic blood pressure 152 mm[Hg] 152 mm[Hg] M EDENT ([facility], ) Diastolic blood pressure 88 mm[Hg] 88 mm[Hg] MEDENT ([facility]) Heart rate 68 /min 68 /min [facility], ) Body height 61 [in_i] 61 [in_i] MEDENT ([facility]) 5'1" Body weight 171.38 [lb_av] 171.38 [lb_av] MEDEN T ([facility]) Body mass index (BMI) [Ratio] 32.4 kg/m2 32.4 k g/m2 [facility] ([facility]) [place] body weight 105 [lb_av] 105 [lb_av] MEDEN T ([facility]) Body weight 77.736 kg 77.736 kg [facility] ([facility]) Body surface area Derived from formula 1.77 m2 1.77 m2 [facility] ([facility]) Body weight 176 [lb_av] 176 [lb_av] eCW1 ([facility]) Body height 61.5 [in_i] 61.5 [in_i] eCW1 ([facility]) Body mass index (BMI) [Ratio] 32.71 kg/m2 32.71 kg/m2 eCW1 ([facility]) Heart rate 76 /min 76 /min eCW1 ([facility]) Respiratory rate 16 /min 16 /min eCW1 ([facility]) Body temperature 96.8 [degF] 96.8 [degF] eCW1 ( [facility]) Systolic blood pressure 178 mm[Hg] 178 mm[Hg] e CW1 ([facility]) Diastolic blood pressure 94 mm[Hg] 94 mm[Hg] eCW1 ([facility]) Body height 61.5 [in_i] 61.5 [in_i] eCW1 ([facility]) Body mass index (BMI) [Ratio] 32.92 kg/m2 32.92 kg/m2 eCW1 ([facility]) Heart rate 68 /min 68 /min eCW1 ([facility]) Respiratory rate 16 /min 16 /min eCW1 ([facility]) Body weight 177.12 [lb_av] 177.12 [lb_av] eCW1 ([facility]) Body temperature 97.2 [degF] 97.2 [degF] eCW1 ( [facility]) Systolic blood pressure 177 mm[Hg] 177 mm[Hg] e CW1 ([facility]) Diastolic blood pressure 107 mm[Hg] 107 mm[Hg] eCW1 ([facility]) Patient Treatment Plan of Care Planned Activity Planned Date Details Description Data Source (s) Tobramycin 3 MG/ML Ophthalmic Solution 01/09/2021 12:00:00 AM EDT eCW1 ([facility]) Betamethasone 0.5 MG/ML / Clotrimazole 10 MG/ML Topica l Cream 01/09/2021 12:00:00 AM EDT eCW1 ([facility]) Amlodipine 2.5 MG Oral Tablet 01/09/2021 12:00:00 AM EDT eCW1 ([facility]) Vitamin D3 10 MCG (400 UNIT) 01/11/2020 12:00:00 AM EDT eCW1 ([facility]) 12 HR diclofenac epolamine 15 MG/HR Transdermal Patch 01/11/2020 12:00:00 AM EDT [email or web address] ([facility]) Omeprazole 20 MG Delayed Release Oral Capsule 01/11/2020 12:00:00 A M EDT [email or web address] ([facility])
[2021-02-09] MEDS ORDERED: ONDA4TAB6 PO (20:42)
[2021-02-09] MEDS ORDERED: FIDAXOMICIN 200 MG TAB (DIFICID) PO SCH (21:00)
--- NOTE | 2021-02-09 21:30 | REPVR ---
PROCEDURE INFORMATION: Exam: XR Abdomen Exam date and time: 02/09/2021 8:22 PM Age: 65 years old Clinical indication: Abdominal pain; Additional info: Abd pain + c. Diff R/O megacolon TECHNIQUE: Imaging protocol: XR of the abdomen. Views: Frontal supine view of the abdomen. 1 View. COMPARISON: CT ABD/PEL W/IV CONTRAST ONLY 07/28/2020 3:12 PM FINDINGS: Gastrointestinal tract: Normal. No bowel dilation. Bones/joints: Unremarkable. IMPRESSION: No acute findings. Electronically signed by: Dedrick Strong On 02/09/2021 21:30:23 PM
== END 2021-02-09 21:41 | disposition home or self-care (01) ==
LOC: M ED 13:51
DX: A04.72 Enterocolitis due to Clostridium difficile, not specified as recurrent (principal); I10 Essential (primary) hypertension; K21.9 Gastro-esophageal reflux disease without esophagitis; Z79.899 Other long term (current) drug therapy; Z88.0 Allergy status to penicillin; Z88.2 Allergy status to sulfonamides; Z88.8 Allergy status to other drugs, medicaments and biological substances

== ENCOUNTER → 2021-07-15 | Outpatient (REF) | payer MEDICARE, MEDICAID, OTHER ==
[~2021-07-15] MED LIST changes: +AMLO2.5T3; +FIDA200TA PO; +ONDA4TAB6 PO
== END ==
LOC: M SFHCDERM 14:11
PROVIDERS: ATTEND Physician Assistant
DX: T81.49XA Infection following a procedure, other surgical site, initial encounter (principal)

== ENCOUNTER → 2021-08-06 | Outpatient (REF) | payer MEDICARE, OTHER ==
[2021-08-06 15:59] LABS: BASO % 0.5 % (0.0-1.0); EOS # 0.2 10^3/uL (0.0-0.5); EOS % 2.7 % (0.0-3.0); HEMATOCRIT 47.7 % (36.0-47.0); LYMPH # 2.1 10^3/uL (1.5-5.0); LYMPH % 27.1 % (24.0-44.0); MEAN CORPUSCULAR HEMOGLOBIN 29.3 pg (27.0-33.0); MEAN CORPUSCULAR HGB CONC 33.5 g/dl (32.0-36.5); MEAN CORPUSCULAR VOLUME 87.4 fl (80.0-96.0); MONO # 0.9 10^3/uL (0.0-0.8); MONO % 11.1 % (2.0-8.0); NEUTROPHILS # 4.6 10^3/uL (1.5-8.5); NEUTROPHILS % 58.5 % (36.0-66.0); PLATELET COUNT, AUTOMATED 257 10^3/uL (150-450); RED BLOOD COUNT 5.46 10^6/uL (4.00-5.40); WHITE BLOOD COUNT 7.8 10^3/uL (4.0-10.0)
[2021-08-06 16:04] LABS: ALBUMIN 4.1 GM/DL (3.2-5.2); BILIRUBIN,TOTAL 0.5 MG/DL (0.2-1.0); CALCIUM LEVEL 9.8 MG/DL (8.8-10.2); CREATININE FOR GFR 1.02 MG/DL (0.55-1.30); GLOMERULAR FILTRATION RATE 57.5 (>45); POTASSIUM SERUM 3.8 MEQ/L (3.5-5.1); TOTAL PROTEIN 7.8 GM/DL (6.4-8.2); URIC ACID 6.5 MG/DL (2.6-6.0)
[2021-08-06 16:31] LABS: HEMOGLOBIN A1c 6.2 %
== END ==
LOC: M SFHCCLAY 11:30
PROVIDERS: ATTEND Family Medicine
DX: S01.00XS Unspecified open wound of scalp, sequela (principal); I10 Essential (primary) hypertension; E11.9 Type 2 diabetes mellitus without complications; M10.9 Gout, unspecified; Y92.9 Unspecified place or not applicable; Y93.9 Activity, unspecified; Y99.9 Unspecified external cause status

== ENCOUNTER → 2022-01-26 | Outpatient (REF) | payer MEDICARE, OTHER ==
[~2022-01-26] MED LIST changes: +INDA1.253 PO; -INDA125TA PO
== END ==
LOC: M SFHCCLAY 14:56
PROVIDERS: ATTEND Physician Assistant
DX: R09.81 Nasal congestion (principal)

== ENCOUNTER → 2022-04-06 | Outpatient (CLI) | payer MEDICARE, OTHER | LOC: M LAB 15:04 | PROVIDERS: ATTEND Family Medicine | DX: S61.4 Open wound of hand (principal); W55.01XS Bitten by cat, sequela ==

== ENCOUNTER 2022-06-18 12:41 | Emergency (ER) | payer MEDICARE, OTHER ==
[~2022-06-18] VITALS: Ht 154.9 cm; Wt 77.6 kg
[2022-06-18 13:39] VITALS: BP 160/90
[2022-06-18] MEDS ORDERED: ISOVUE-370 76% 100ML VIAL As Ordered ONE (13:45)
[2022-06-18 13:49] LABS: BASO % 0.4 % (0.0-1.0); EOS # 0.1 10^3/uL (0.0-0.5); EOS % 1.1 % (0.0-3.0); HEMATOCRIT 48.7 % (36.0-47.0); HEMOGLOBIN 16.6 g/dl (12.0-15.5); LYMPH # 1.7 10^3/uL (1.5-5.0); LYMPH % 23.8 % (24.0-44.0); MEAN CORPUSCULAR HEMOGLOBIN 29.6 pg (27.0-33.0); MEAN CORPUSCULAR HGB CONC 34.1 g/dl (32.0-36.5); MEAN CORPUSCULAR VOLUME 86.8 fl (80.0-96.0); MONO # 0.6 10^3/uL (0.0-0.8); MONO % 7.6 % (2.0-8.0); NEUTROPHILS # 4.8 10^3/uL (1.5-8.5); NEUTROPHILS % 66.8 % (36.0-66.0); PLATELET COUNT, AUTOMATED 210 10^3/uL (150-450); RED BLOOD COUNT 5.61 10^6/uL (4.00-5.40); WHITE BLOOD COUNT 7.2 10^3/uL (4.0-10.0)
[2022-06-18 14:33] LABS: LIPASE 47 U/L (12-53)
[2022-06-18 14:51] LABS: ALBUMIN 4.1 G/DL (3.2-5.2); ALKALINE PHOSPHATASE 121 U/L (46-116); ALT/SGPT 192 U/L (7.0-40); AST/SGOT 174 U/L (<34); BILIRUBIN,DIRECT 0.2 MG/DL (<0.4); BILIRUBIN,TOTAL 0.7 MG/DL (0.3-1.2); CK-MB VALUE MASS 1.1 NG/ML (<3.6); TOTAL PROTEIN 7.4 G/DL (5.7-8.2)
[2022-06-18 14:52] LABS: CPK CREATINE PHOSPHOKINASE 117 U/L (34-145); MB/CK RELATIVE INDEX 0.94 (< OR =4)
[2022-06-18] MEDS ORDERED: NS 500 ML IV ONE (15:10)
[2022-06-18 15:31] LABS: HEMOGLOBIN A1c 9.8 % (4.0-6.0)
== END 2022-06-18 17:01 | disposition home or self-care (01) ==
LOC: M ED 12:41
DX: K80.66 Calculus of gallbladder and bile duct with acute and chronic cholecystitis without obstruction (principal); E11.65 Type 2 diabetes mellitus with hyperglycemia; Z88.0 Allergy status to penicillin; Z88.2 Allergy status to sulfonamides; Z88.8 Allergy status to other drugs, medicaments and biological substances
CPT/HCPCS: 71045; 74177; 76705; 80047; 80076; 81001; 82550; 82553; 83036; 83605; 83690; 84484; 85025; 87086; 93005; 99284; Q9967

== ENCOUNTER → 2023-01-20 | Outpatient (CLI) | payer MEDICARE, OTHER | LOC: M SOG 07:48 | PROVIDERS: ATTEND Physician Assistant | DX: M79.645 Pain in left finger(s) (principal) ==

== ENCOUNTER → 2023-01-25 | Outpatient (REF) | payer MEDICARE ==
[2023-01-25 18:16] LABS: HEMATOCRIT 48.7 % (36.0-47.0); HEMOGLOBIN 16.3 g/dl (12.0-15.5); MEAN CORPUSCULAR HEMOGLOBIN 30.2 pg (27.0-33.0); MEAN CORPUSCULAR HGB CONC 33.5 g/dl (32.0-36.5); MEAN CORPUSCULAR VOLUME 90.4 fl (80.0-96.0); PLATELET COUNT, AUTOMATED 249 10^3/uL (150-450); RED BLOOD COUNT 5.39 10^6/uL (4.00-5.40); WHITE BLOOD COUNT 8.3 10^3/uL (4.0-10.0)
[2023-01-25 18:18] LABS: BILIRUBIN,TOTAL 0.6 MG/DL (0.3-1.2); CALCIUM LEVEL 9.8 MG/DL (8.3-10.6); CHOLESTEROL RISK RATIO 3.71 (<5); CREATININE FOR GFR 1.11 MG/DL (0.55-1.30); HDL CHOLESTEROL 52.8 MG/DL (>40); LDL CHOLESTEROL 98.4 MG/DL (<100); MAGNESIUM LEVEL 2.2 MG/DL (1.8-2.4); NON-HDL-C 143.2 MG/DL; TOTAL PROTEIN 7.4 G/DL (5.7-8.2)
== END ==
LOC: M SFHCCLAY 14:08
PROVIDERS: ATTEND Family Medicine
DX: I10 Essential (primary) hypertension (principal); E11.9 Type 2 diabetes mellitus without complications; E78.2 Mixed hyperlipidemia; K21.9 Gastro-esophageal reflux disease without esophagitis

== ENCOUNTER → 2023-05-26 | Outpatient (REF) | payer MEDICARE ==
[2023-05-26 17:20] LABS: ALBUMIN 4.1 G/DL (3.2-5.2); ALKALINE PHOSPHATASE 105 U/L (46-116); ALT/SGPT 236 U/L (7.0-40); AST/SGOT 225 U/L (<34); BILIRUBIN,TOTAL 0.6 MG/DL (0.3-1.2); BLOOD UREA NITROGEN 16 MG/DL (9-23); CALCIUM LEVEL 9.7 MG/DL (8.3-10.6); CARBON DIOXIDE LEVEL 28 MMOL/L (20-31); CHLORIDE LEVEL 100 MMOL/L (98-107); CREATININE FOR GFR 0.84 MG/DL (0.55-1.30); GLOMERULAR FILTRATION RATE > 60.0 (>45); GLUCOSE, FASTING 394 MG/DL (74-106); MAGNESIUM LEVEL 1.9 MG/DL (1.8-2.4); POTASSIUM SERUM 3.9 MMOL/L (3.5-5.1); SODIUM LEVEL 134 MMOL/L (136-145); TOTAL PROTEIN 7.5 G/DL (5.7-8.2)
[2023-05-26 17:37] LABS: HEMOGLOBIN A1c 10.4 % (4.0-6.0)
[2023-05-26 17:55] LABS: HEPATITIS B CORE ANTIBODY IGM NEGATIVE (NEGATIVE); HEPATITIS C VIRUS ABY INDEX 0.05 INDEX (<0.8)
== END ==
LOC: M SFHCCLAY 13:58
PROVIDERS: ATTEND Family Medicine
DX: E11.9 Type 2 diabetes mellitus without complications (principal); K76.0 Fatty (change of) liver, not elsewhere classified; K21.9 Gastro-esophageal reflux disease without esophagitis

== ENCOUNTER → 2023-10-10 | Outpatient (REF) | payer MEDICARE, MEDICAID ==
[~2023-10-10] MED LIST changes: +ONDA-282 PO; -ONDA4TAB6 PO
[2023-10-10 17:33] LABS: HEMATOCRIT 49.1 % (36.0-47.0); HEMOGLOBIN 16.2 g/dl (12.0-15.5); MEAN CORPUSCULAR HEMOGLOBIN 29.6 pg (27.0-33.0); MEAN CORPUSCULAR VOLUME 89.8 fl (80.0-96.0); PLATELET COUNT, AUTOMATED 206 10^3/uL (150-450); RED BLOOD COUNT 5.47 10^6/uL (4.00-5.40); WHITE BLOOD COUNT 6.7 10^3/uL (4.0-10.0)
[2023-10-10 17:45] LABS: ALKALINE PHOSPHATASE 109 U/L (46-116); ALT/SGPT 145 U/L (7.0-40); AST/SGOT 117 U/L (<34); BILIRUBIN,TOTAL 0.6 MG/DL (0.3-1.2); BLOOD UREA NITROGEN 23 MG/DL (9-23); CALCIUM LEVEL 9.3 MG/DL (8.3-10.6); CARBON DIOXIDE LEVEL 26 MMOL/L (20-31); CHLORIDE LEVEL 103 MMOL/L (98-107); CREATININE FOR GFR 0.81 MG/DL (0.55-1.30); GLOMERULAR FILTRATION RATE > 60.0 (>45); GLUCOSE, FASTING 152 MG/DL (74-106); POTASSIUM SERUM 4.2 MMOL/L (3.5-5.1); SODIUM LEVEL 139 MMOL/L (136-145); TOTAL PROTEIN 7.3 G/DL (5.7-8.2)
[2023-10-10 18:14] LABS: HEMOGLOBIN A1c 7.7 % (4.0-6.0)
== END ==
LOC: M SFHCCLAY 10:05
PROVIDERS: ATTEND Family Medicine
DX: I10 Essential (primary) hypertension (principal); E11.9 Type 2 diabetes mellitus without complications

== ENCOUNTER → 2024-01-23 | Outpatient (REF) | payer MEDICARE ==
[2024-01-23 18:01] LABS: ALBUMIN 4.1 G/DL (3.2-5.2); ALKALINE PHOSPHATASE 95 U/L (35-104); ALT/SGPT 138 U/L (7.0-40); AST/SGOT 122 U/L (<34); BILIRUBIN,TOTAL 0.6 MG/DL (0.3-1.2); BLOOD UREA NITROGEN 19 MG/DL (9-23); CALCIUM LEVEL 9.9 MG/DL (8.3-10.6); CARBON DIOXIDE LEVEL 27 MMOL/L (20-31); CHLORIDE LEVEL 105 MMOL/L (98-107); CHOLESTEROL LEVEL 169 MG/DL (<200); CHOLESTEROL RISK RATIO 3.85 (<5); CREATININE FOR GFR 0.86 MG/DL (0.55-1.30); GLOMERULAR FILTRATION RATE > 60.0 (>45); GLUCOSE, FASTING 112 MG/DL (74-106); HDL CHOLESTEROL 43.8 MG/DL (>40); NON-HDL-C 125.2 MG/DL; POTASSIUM SERUM 4.9 MMOL/L (3.5-5.1); SODIUM LEVEL 142 MMOL/L (136-145); TOTAL PROTEIN 7.9 G/DL (5.7-8.2); TRIGLYCERIDES LEVEL 211 MG/DL (<150)
[2024-01-23 18:42] LABS: HEMOGLOBIN A1c 7.1 % (4.0-6.0)
== END ==
LOC: M SFHCCLAY 10:14
PROVIDERS: ATTEND Family Medicine
DX: E11.9 Type 2 diabetes mellitus without complications (principal); E55.9 Vitamin D deficiency, unspecified

== ENCOUNTER → 2024-02-28 | Outpatient (CLI) | payer MEDICARE | LOC: M CLY 10:45 | PROVIDERS: ATTEND Family Medicine | DX: M25.561 Pain in right knee (principal); M54.50 Low back pain, unspecified; M54.2 Cervicalgia ==

== ENCOUNTER → 2024-05-22 | Outpatient (REF) | payer MEDICARE ==
[2024-05-22 20:34] LABS: HEMATOCRIT 48.4 % (36.0-47.0); HEMOGLOBIN 16.2 g/dl (12.0-15.5); MEAN CORPUSCULAR HEMOGLOBIN 29.2 pg (27.0-33.0); MEAN CORPUSCULAR HGB CONC 33.5 g/dl (32.0-36.5); MEAN CORPUSCULAR VOLUME 87.2 fl (80.0-96.0); PLATELET COUNT, AUTOMATED 226 10^3/uL (150-450); RED BLOOD COUNT 5.55 10^6/uL (4.00-5.40); WHITE BLOOD COUNT 8.2 10^3/uL (4.0-10.0)
[2024-05-22 21:02] LABS: HEMOGLOBIN A1c 7.8 % (4.0-6.0)
[2024-05-22 21:39] LABS: ALBUMIN 4.2 G/DL (3.2-5.2); ALKALINE PHOSPHATASE 91 U/L (35-104); ALT/SGPT 123 U/L (7.0-40); AST/SGOT 103 U/L (<34); BILIRUBIN,TOTAL 0.5 MG/DL (0.3-1.2); BLOOD UREA NITROGEN 21 MG/DL (9-23); CALCIUM LEVEL 10.2 MG/DL (8.3-10.6); CARBON DIOXIDE LEVEL 27 MMOL/L (20-31); CHLORIDE LEVEL 105 MMOL/L (98-107); CREATININE FOR GFR 0.78 MG/DL (0.55-1.30); GLOMERULAR FILTRATION RATE > 60.0 (>45); GLUCOSE, FASTING 163 MG/DL (74-106); POTASSIUM SERUM 3.8 MMOL/L (3.5-5.1); SODIUM LEVEL 142 MMOL/L (136-145)
== END ==
LOC: M SFHCCLAY 10:35
PROVIDERS: ATTEND Family Medicine
DX: I10 Essential (primary) hypertension (principal); E11.9 Type 2 diabetes mellitus without complications

== ENCOUNTER → 2024-09-25 | Outpatient (REF) | payer MEDICARE ==
[2024-09-25 13:21] LABS: ALT/SGPT 144.0 U/L (7.0-40); AST/SGOT 136.0 U/L (<34); CALCIUM LEVEL 9.7 MG/DL (8.3-10.6); CARBON DIOXIDE LEVEL 27.0 MMOL/L (20-31); CHLORIDE LEVEL 103.0 MMOL/L (98-107); CREATININE FOR GFR 0.77 MG/DL (0.55-1.30); GLOMERULAR FILTRATION RATE 82.9 (>39); POTASSIUM SERUM 3.8 MMOL/L (3.5-5.1); SODIUM LEVEL 143.0 MMOL/L (136-145)
[2024-09-25 13:49] LABS: ESTIMATED AVERAGE GLUCOSE 140.0 MG/DL (60-110)
== END ==
LOC: M SFHCCLAY 08:50
PROVIDERS: ATTEND Family Medicine
DX: I10 Essential (primary) hypertension (principal); E11.9 Type 2 diabetes mellitus without complications